=== PATIENT | female | born 1940 | race Caucasian/White ===

== ENCOUNTER → 2016-08-25 | Outpatient (CLI) | payer MEDICARE, OTHER | LOC: GMA 18:06 | PROVIDERS: ATTEND Nurse Practitioner Family | DX: L03.115 Cellulitis of right lower limb (principal) ==

== ENCOUNTER → 2016-08-26 | Outpatient (CLI) | payer MEDICARE, OTHER ==
--- NOTE | 2016-08-26 16:28 | US ---
EXAM DESCRIPTION: Venous,Lower Extremity RT CLINICAL HISTORY: EDEMA COMPARISON: None Available. TECHNIQUE: Right lower extremity venous duplex FINDINGS: There is no DVT identified. There is normal color flow observed with good flow augmentation. All deep veins compress normally. IMPRESSION: Negative for DVT Electronically signed by: Herve Wolf MD 08/26/2016 4:27 PM HOME CARE MUSIC THERAPIST
== END | disposition home or self-care (01) ==
LOC: US 09:34
PROVIDERS: ATTEND Nurse Practitioner Family
DX: R60.9 Edema, unspecified (principal)

== ENCOUNTER → 2016-09-03 | Outpatient (CLI) | payer MEDICARE, OTHER | END | disposition home or self-care (01) | LOC: GMAB 10:49 | PROVIDERS: ATTEND Family Medicine | DX: I80.01 Phlebitis and thrombophlebitis of superficial vessels of right lower extremity (principal); L03.115 Cellulitis of right lower limb ==

== ENCOUNTER → 2017-01-18 | Outpatient (CLI) | payer MEDICARE, OTHER | END | disposition home or self-care (01) | LOC: GMAB 14:03 | PROVIDERS: ATTEND Family Medicine | DX: L65.9 Nonscarring hair loss, unspecified (principal) ==

== ENCOUNTER → 2017-03-18 | Outpatient (CLI) | payer MEDICARE, OTHER | END | disposition home or self-care (01) | LOC: LAB.O 11:25 | PROVIDERS: ATTEND Internal Medicine | DX: E03.9 Hypothyroidism, unspecified (principal) ==

== ENCOUNTER → 2017-06-14 | Outpatient (CLI) | payer MEDICARE, OTHER | END | disposition home or self-care (01) | LOC: GMAB 10:18 | PROVIDERS: ATTEND Family Medicine | DX: E03.9 Hypothyroidism, unspecified (principal) ==

== ENCOUNTER 2017-08-11 18:03 | Inpatient (IN) | payer MEDICARE, OTHER ==
[2017-08-11] MEDS ORDERED: SODIUM CHLORIDE 0.9% 1000ML 1,000 ML IVS ONE ×2 (18:39→22:45)
--- NOTE | 2017-08-11 18:44 | ED.PDOC ---
History of Present Illness - General Chief Complaint: General Stated Complaint: cough,not eating,sick Time Seen by Provider: 08/11/17 18:36 Source: patient Exam Limitations: no limitations Additional Information: PT C/O WEAKNESS. HAS BEEN FEELING BAD FOR 3 DAYS BUT TODAY SHE BECAME SO WEAK SHE COULD NOT GET UP OUT OF BED. FAMILY CALLED EMS. - History of Present Illness Timing/Duration: other - 3 DAYS Severity: moderate Improving Factors: nothing Worsening Factors: nothing Associated Symptoms: other - HAS BEEN SWEATING AT HOME Allergies/Adverse Reactions: Allergies NO KNOWN ALLERGY Allergy (Verified 08/04/12 09:12) Home Medications: Ambulatory Orders Atorvastatin Calcium [Lipitor] 40 mg PO DAILY 07/29/12 Folic Acid [(None)] 1 mg PO DAILY 07/29/12 Glipizide 10 mg PO BID 07/29/12 Levothyroxine Sodium [Synthroid] 0.075 mg PO DAILY 07/29/12 Sulfasalazine [Sulfazine] 500 mg PO BID 07/29/12 predniSONE [(None)] 5 mg PO DAILY 07/29/12 Canagliflozin [Invokana] 300 mg PO DAILY 08/11/17 Clopidogrel Bisulfate [Plavix] 75 mg PO QD 08/11/17 Dabigatran Etexilate [Pradaxa] 75 mg PO BID 08/11/17 Methotrexate Sodium [Methotrexate] 10 mg PO WKLY 08/11/17 Metoprolol Succinate [Metoprolol Succinate ER] 100 mg PO DAILY 08/11/17 Pantoprazole Sodium 40 mg PO DAILY 08/11/17 Review of Systems - Review of Systems Constitutional: States: chills, diaphoresis. Denies: fever EENTM: States: no symptoms reported Respiratory: States: cough, short of breath, other - STAFF RESPIRATORY THERAPIST Cardiology: States: no symptoms reported Gastrointestinal/Abdominal: Denies: abdominal pain, nausea, vomiting Genitourinary: States: no symptoms reported Musculoskeletal: States: no symptoms reported Skin: States: no symptoms reported Neurological: States: no symptoms reported Endocrine: States: no symptoms reported Hematologic/Lymphatic: States: no symptoms reported Past Medical History (General) - Patient Medical History Hx Stroke: No Hx Cardiac Disorders: Yes - CAD, AFIB Hx Congestive Heart Failure: No Hx Hypertension: Yes Hx Diabetes: Yes Surgical History: Hysterectomy - Vaccination History Hx Influenza Vaccination: Yes Hx Pneumococcal Vaccination: Yes - Social History Hx Tobacco Use: No Family Medical History - Family History Mother Family History: Unknown Living Status: Unknown Physical Exam - Physical Exam General Appearance: Frail, No apparent distress Eye Exam: bilateral normal Ears, Nose, Throat: other - DRY MM Neck: full range of motion, supple, normal inspection Respiratory: lungs clear, normal breath sounds Cardiovascular/Chest: no murmur, tachycardia, other - OCC ECTOPY Gastrointestinal/Abdominal: normal bowel sounds, non tender, soft, no organomegaly Back Exam: normal inspection, no CVA tenderness Extremity: normal range of motion, non-tender Neurologic: no motor/sensory deficits, alert, normal mood/affect Skin Exam: normal color, warm/dry Lymphatic: no adenopathy Progress - Progress Progress: 08/11/17 20:37 FEELING SOME BETTER, STILL TACHYCARDIC AND HAD TEMP EARLIER. - EKG/XRAY/CT XRAY: chest - APRIL Departure - Departure Clinical Impression: Viral illness, Diabetes 1.5, managed as type 2, Dehydration fever Hypertension Qualifiers: Hypertension type: essential hypertension Qualified Code(s): I10 - Essential ( primary) hypertension Time of Disposition: 20:40 - D/W DANDY SINGLETON, WILL ADMIT Disposition: Admit Patient Condition: Fair Departure Forms: ED Discharge - Pt. Copy, Patient Portal Self Enrollment Referrals: Carlos Alberto Martin MD [Primary Care Provider] - 1-2 Weeks Home Medications: Ambulatory Orders Atorvastatin Calcium [Lipitor] 40 mg PO DAILY 07/29/12 Folic Acid [(None)] 1 mg PO DAILY 07/29/12 Glipizide 10 mg PO BID 07/29/12 Levothyroxine Sodium [Synthroid] 0.075 mg PO DAILY 07/29/12 Sulfasalazine [Sulfazine] 500 mg PO BID 07/29/12 predniSONE [(None)] 5 mg PO DAILY 07/29/12 Canagliflozin [Invokana] 300 mg PO DAILY 08/11/17 Clopidogrel Bisulfate [Plavix] 75 mg PO QD 08/11/17 Dabigatran Etexilate [Pradaxa] 75 mg PO BID 08/11/17 Methotrexate Sodium [Methotrexate] 10 mg PO WKLY 08/11/17 Metoprolol Succinate [Metoprolol Succinate ER] 100 mg PO DAILY 08/11/17 Pantoprazole Sodium 40 mg PO DAILY 08/11/17
--- NOTE | 2017-08-11 19:31 | RAD ---
PROCEDURE: XR CHEST 1 VIEW HISTORY: COUGH, FEVER COMPARISON: 10/18/2008 TECHNIQUE: Single projection of the chest was done. FINDINGS: There are underlying changes of COPD . There is a 4 mm nodule in the periphery of the right upper lung zone, indeterminate in nature and can be further assessed with a dedicated CT of the chest There are no discrete airspace infiltrates, pneumothoraces or pleural effusions. The pulmonary vascularity is normal. The cardiomediastinal silhouette is unremarkable for patient's age and sex. IMPRESSION: There is a 4 mm nodule in the periphery of the right upper lung zone, indeterminate in nature, new since 2008 and can be further assessed with a dedicated CT of the chest. Electronically signed by: Bala Cline MD 08/11/2017 7:30 PM [facility] Workstation: [id number]
[2017-08-11] MEDS ORDERED: ACETAMINOPHEN 500 MG TAB PO ONE (19:47)
--- NOTE | 2017-08-11 21:02 | HP ---
SUPERVISING PHYSICIAN: Nestor Fernandez MD CHIEF COMPLAINT: Fever and weakness. HISTORY OF PRESENT ILLNESS: This is a 76-year-old female patient who lives alone. Her brother went to see her today and she reported to him that she has felt sick and weak over the last 3 days. He reported she was so weak she was unable to turn her heater off and he felt it was over 100 degrees in her house. EMS was called and she was brought to the Emergency Room. In the Emergency Room, her temperature was 101.2 and her O2 saturations were 92% to 95%. Chest x -ray was done and per radiologic interpretation showed a 4 mm nodule in the periphery of the right upper lung, indeterminate in nature, new since 2008. Her labs show WBCs 5.7, hemoglobin 11.4, hematocrit 34.6, platelet count 229, neutrophils 74.1. Sodium was slightly low at 134, potassium 4.1, chloride 104, carbon dioxide 18, BUN 17, creatinine 0.9. Glucose 126, serum osmolality 269.4 , calcium 8. Urine showed glucose 500, urine ketones 15, small amount of urine blood, and 3 to 5 urine RBCs. I was called for admission to the hospital. The patient was admitted to the Medical/Surgical Floor and shortly after admission, she became very confused. She was unable to answers any questions. Her entry table operator were equal bilaterally and she could follow some simple commands, but she was unable to answer any questions. CT of the head was done and per radiologic interpretation showed no acute intracranial abnormalities. A flu swab was also done and she was positive for flu A. She received fluids in the Emergency Room as well as on the Floor. CPK was also ordered. The patient also had a heart rate between 110 and 150s. She was in atrial fibrillation with rapid ventricular response. She does have a history of atrial fibrillation on Pradaxa. She was given 5 mg of Lopressor IV. Rodriguez was also placed. Her review of systems and past medical history is limited due to the patient's mental status. PAST MEDICAL HISTORY: 1. Atrial fibrillation. 2. Chronic obstructive pulmonary disease. 3. Diabetes mellitus. 4. Hypothyroidism. PAST SURGICAL HISTORY: 1. Hysterectomy. OUTPATIENT MEDICATIONS: Per the EMR and awaiting verification. ALLERGIES: NO KNOWN DRUG ALLERGIES. SOCIAL HISTORY: The patient lives alone. Her smoking, ETOH or illicit drug use is unknown at this time. REVIEW OF SYSTEMS: Unable to obtain due to the patient's mental status. PHYSICAL EXAMINATION: VITAL SIGNS: Temperature on admission was 101.2. It is now 99.3. Heart rate was as low as 118 and has been as high as 154. Blood pressure 129/90. Respiratory rate 20. O2 92% on room air. GENERAL: This is a thin 76-year-old female patient who is in mild distress lying in her hospital bed. HEENT: Normocephalic, atraumatic. Pupils are equal and reactive. Oropharynx is clear. Oral mucous membranes are dry. NECK: Supple without mass. No discernible jugular venous distention. RESPIRATORY: Essentially clear to auscultation bilaterally. CARDIOVASCULAR: Tachycardic rate and regular rhythm. GASTROINTESTINAL: Abdomen is soft, nondistended. Bowel sounds are positive. EXTREMITIES: No cyanosis, clubbing or edema. SKIN: Her facial areas are flushed. There are no lesions or rashes. NEUROLOGIC: She is awake. She is confused. LABORATORY: Labs and films are as per history of present illness. CPK is pending. ASSESSMENT: 1. Altered mental status, may be secondary to febrile illness and environmental factors. 2. Influenza A. 3. Atrial fibrillation with rapid ventricular response, on Pradaxa and metoprolol. 4. Chronic obstructive pulmonary disease. 5. Diabetes mellitus, type 2. 6. Hypothyroidism. PLAN: We will admit the patient to the hospital. We will watch her neurologically overnight. She has been given 3 total liters of fluid. I will repeat her labs in the morning. I will order Tamiflu. I will not start any antibiotics at this time, but we will monitor her cultures closely. Otherwise, we will monitor the patient closely and follow as needed. Dr. Fernandez is the collaborating physician and available for consultation. #[id number] [facility]
[2017-08-11] MEDS ORDERED: LEVALBUTEROL NEBS 1.25 MG/3 ML VIAL INH PRN (22:45)
[2017-08-11] MEDS: METOPROLOL TARTRATE 50 MG TAB PO ONE ×2 (22:49→22:54)
[2017-08-11] MEDS ORDERED: METOPROLOL TARTRATE INJ 5 MG/5 ML VIAL IV ONE (22:52)
[2017-08-11] MEDS ORDERED: SODIUM CHLORIDE 0.9% 1000ML 1,000 ML ONE (22:57)
--- NOTE | 2017-08-11 23:13 | CT ---
PROCEDURE: Head HISTORY: ams Indication: Same as above Comparison: None Technique: CT of the head was done without intravenous contrast was done in the orthogonal planes. This exam was performed according to our departmental dose-optimization program, which includes automated exposure control, adjustment of the mA and/or KV according to the patient's size and/or use of iterative reconstruction technique. FINDINGS: There is no intracranial hemorrhage, midline shift mass effect or acute focal infarct. There is mild prominence of the sylvian fissures and the cortical sulci reflecting age related volume loss. There is mild periventricular and deep white matter low attenuation, most likely related to small vessel white matter ischemic disease. If clinical concern exists regarding an acute ischemic/vascular pathology being responsible for patient's symptomatology, an MRI of the brain is more sensitive than the current study, in ruling out such a possibility. There is good varghese/white matter differentiation. The ventricular system is normal. The mastoid air cells are unremarkable . The paranasal sinuses show changes of chronic sinusitis . There is no visualization of acute fractures involving the calvarium or the skull base. IMPRESSION: There is no acute intracranial abnormality. Age related and chronic involutional changes are seen. Electronically signed by: Bala Cline MD 08/11/2017 11:12 PM [facility] Workstation: [id number]
[2017-08-11] MEDS: PANTOPRAZOLE SODIUM IV 40 MG VIAL IV SCH (23:48)
[2017-08-11] MEDS: IV SET AND CAP CHANGE INJ INJ SCH (23:49)
[2017-08-12] MEDS: LEVALBUTEROL NEBS 1.25 MG/3 ML VIAL INH SCH ×3 (00:04→16:18)
[2017-08-12] MEDS: DEX 5% W/NACL 0.45% 1000ML 1,000 ML IVS PRN ×2 (00:39→10:21)
[2017-08-12] MEDS: OSELTAMIVIR 75 MG CAP PO SCH ×2 (08:34→20:21)
[2017-08-12] MEDS: SODIUM CHLORIDE 0.9% (FLUSH) 10 ML SYG IV SCH ×2 (08:35→20:21)
[2017-08-12] MEDS ORDERED: METOPROLOL SUCCINATE XL 100 MG TAB PO SCH (09:00)
[2017-08-12] MEDS: METOPROLOL SUCCINATE XL 50 MG TAB PO SCH (09:51)
[2017-08-12] MEDS: sulfaSALAzine TAB 500 MG TAB PO SCH ×2 (09:58→20:21)
[2017-08-12] MEDS: glipiZIDE 5 MG TAB PO SCH ×2 (09:58→16:45)
[2017-08-12] MEDS: LEVOTHYROXINE SODIUM 0.075 MG TAB PO SCH (09:58)
[2017-08-12] MEDS: ATORVASTATIN 20 MG TAB PO SCH (09:58)
[2017-08-12] MEDS: CLOPIDOGREL 75 MG TAB PO SCH (09:58)
[2017-08-12] MEDS: DABIGATRAN ETEXILATE 75 MG CAP PO SCH ×2 (09:58→20:21)
[2017-08-12] MEDS: predniSONE 5 MG TAB PO SCH (09:58)
[2017-08-12] MEDS: NON-FORMULARY MEDICATION 1 EA MIS (Canagliflozin [Invokana] 300 MG) PO SCH (10:40)
--- NOTE | 2017-08-12 20:13 | PN ---
DATE: 08/12/17 SUPERVISING PHYSICIAN: Nestor Fernandez M.D. SUBJECTIVE: The patient is sitting up in bed much more alert and oriented today , actually complains of being hungry. She denies any chest pain, shortness of breath, nausea, vomiting or diarrhea. OBJECTIVE: Temperature 98, pulse rate 96, blood pressure 119/71, respirations 14, O2 sat is 99% on room air. RESPIRATORY: Essentially clear to auscultation bilaterally. CARDIAC: Regular rate, irregular rhythm. GASTROINTESTINAL: Abdomen is soft, nondistended, non-tender. Bowel sounds are positive. EXTREMITIES: No cyanosis, clubbing or edema. NEUROLOGIC: She is awake, alert and oriented times three. LABORATORY: Sodium 138, potassium 4.1, chloride 110, carbon dioxide 20. BUN 12 with creatinine 0.81. Serum osmolality is 274.4, calcium 7.6 with creatinine kinase 181. WBCs are 4.3 with hemoglobin 11.2 and hematocrit 34. Preliminary blood cultures are negative to date. Urine culture is pending. Flu swab was positive for Influenza A. All other labs and films have been reviewed via the EMR. ASSESSMENT: 1. Upper respiratory illness with a positive Influenza A swab. 2. Altered mental status may be secondary to febrile illness, dehydration and environmental factors. 3. Atrial fibrillation with rapid ventricular response on Pradaxa and Metoprolol. Has normalized since resuming her medications. 4. Chronic obstructive pulmonary disease. 5. Diabetes mellitus type 2. 6. Hypothyroidism. PLAN: We will continue present supportive care. I have advanced her diet to a full liquid. I have also stopped her IV fluids and restarted all of her home medications. Her mental status has improved greatly with fluids. I will consult Physical Therapy in the morning to make sure she is safe for discharge. It may be beneficial for her to have home health on discharge. I have ordered labs for in the morning. We will continue to monitor the patient closely and follow as needed. Dr. Fernandez is the collaborating physician available for consultation. #[id number] [facility]
[2017-08-12] MEDS ORDERED: HYDROcodone 5MG/APAP 325MG 1 EA TAB ONE (20:14)
[2017-08-12] MEDS: HYDROcodone 5MG/APAP 325MG 1 EA TAB PO PRN (20:20)
[2017-08-12] MEDS: PANTOPRAZOLE SODIUM IV 40 MG VIAL IV SCH (23:10)
[2017-08-13] MEDS: LEVALBUTEROL NEBS 1.25 MG/3 ML VIAL INH SCH ×4 (00:20→23:40)
[2017-08-13] MEDS: glipiZIDE 5 MG TAB PO SCH ×2 (06:47→16:08)
[2017-08-13] MEDS: NON-FORMULARY MEDICATION 1 EA MIS (Canagliflozin [Invokana] 300 MG) PO SCH (08:50)
[2017-08-13] MEDS: OSELTAMIVIR 75 MG CAP PO SCH ×2 (08:50→21:29)
[2017-08-13] MEDS: sulfaSALAzine TAB 500 MG TAB PO SCH ×2 (08:50→21:31)
[2017-08-13] MEDS: ATORVASTATIN 20 MG TAB PO SCH (08:51)
[2017-08-13] MEDS: DABIGATRAN ETEXILATE 75 MG CAP PO SCH ×2 (08:51→21:29)
[2017-08-13] MEDS: predniSONE 5 MG TAB PO SCH (08:51)
[2017-08-13] MEDS: LEVOTHYROXINE SODIUM 0.075 MG TAB PO SCH (08:51)
[2017-08-13] MEDS: METOPROLOL SUCCINATE XL 50 MG TAB PO SCH (08:51)
[2017-08-13] MEDS: SODIUM CHLORIDE 0.9% (FLUSH) 10 ML SYG IV SCH ×2 (08:52→21:30)
[2017-08-13] MEDS: CLOPIDOGREL 75 MG TAB PO SCH (08:54)
--- NOTE | 2017-08-13 09:12 | CT ---
EXAM DESCRIPTION: Chest w/o Contrast CLINICAL HISTORY: pulm nodule COMPARISON: Chest radiograph 08/11/2017 TECHNIQUE: Multiple axial images of the chest without contrast Multiplanar reconstructions were provided. This exam was performed according to our departmental dose-optimization program, which includes automated exposure control, adjustment of the mA and/or kV according to patient size and/or use of iterative reconstruction technique. FINDINGS: Lungs: Lungs are mildly hyperexpanded. 4 mm pulmonary nodule in the superior right lower lobe on series 4 image 57. 4 mm right lower lobe pulmonary nodule on image 67. Linear atelectasis or scarring in the anterior right middle lobe and in the inferior left lower lobe. No pleural effusion. Mediastinum: The heart is enlarged. No pericardial effusion. Severe atherosclerosis in the thoracic aorta and in the coronary arteries. The trachea and esophagus are unremarkable. Lymph nodes: There are no pathologically enlarged lymph nodes by CT size criteria. Chest wall and lower neck: Indeterminate 1.2 cm nodule in the upper outer left breast. Bones: The bones are demineralized. Advanced multilevel spondylitic changes throughout the thoracic spine. Upper abdomen: Atherosclerosis in the upper abdominal aorta and its major branches. IMPRESSION: 1. Pulmonary nodules measuring up to 4 mm. Follow-up CT chest in 12 months recommended to confirm stability per guidelines below. 2. Left breast nodule measuring 1.2 cm. Recommend correlation with mammography. 3. Severe coronary artery atherosclerosis. 4. Cardiomegaly. 2017 Fleischner Society Recommendations for Multiple Solid Lung Nodules Follow-Up base on size (average of long- and short-axis diameters). Use most suspicious nodule for followup. Nodule Size <6 mm High-Risk Patient: Optional CT at 12 months Electronically signed by: Trevor Abbott MD 08/13/2017 9:11 AM [facility]
--- NOTE | 2017-08-13 13:51 | PN ---
SUPERVISING PHYSICIAN: Nestor Fernandez MD DATE: 08/13/17 SUBJECTIVE: The patient is lying in bed. She complains of extreme weakness and having difficulty getting out of bed. We talked at length about getting home health on discharge with physical therapy. She agreed that would be beneficial. Otherwise, no complaints of chest pain, nausea, vomiting, shortness of breath. OBJECTIVE: VITAL SIGNS: Afebrile. Heart rate 95. Respiratory rate 19. Blood pressure 131/74. O2 saturation 95% on room air. LUNGS: Essentially clear to auscultation bilaterally. CARDIAC: Regular rate and rhythm. GASTROINTESTINAL: Abdomen is soft, nondistended, nontender. Bowel sounds are positive. NEUROLOGIC: Awake, alert and oriented times three. LABORATORY: WBC 4.3, hemoglobin 10.5, hematocrit 32.3. Sodium 140, potassium 3.7, chloride 112, carbon dioxide 22, anion gap 9.7, BUN 11, creatinine 0.93. Preliminary blood cultures show no growth after [address] this morning that was done as recommended on her chest x-ray shows: 1. Pulmonary nodules measuring up to 4 mm with followup chest in 12 months recommended to confirm stability per guidelines. 2. Left breast nodule measuring 1.2 cm. Recommend correlation with mammography. 3. Severe coronary artery atherosclerosis. 4. Cardiomegaly. All other labs and films have been reviewed via the EMR. ASSESSMENT: 1. Upper respiratory illness with a positive Influenza A swab. 2. Altered mental status on admission, secondary to febrile illness, dehydration and environmental factors, now improved. 3. Atrial fibrillation with rapid ventricular response on admission on Pradaxa and metoprolol, now normalized since taking her medications. 4. Chronic obstructive pulmonary disease. 5. Diabetes mellitus, type 2. 6. Hypothyroidism. 7. Pulmonary nodule, 4 mm, needing followup in 12 months. 8. Left breast nodule measuring 1.2 cm, recommend correlation with mammography. PLAN: We will continue present supportive care. She has agreed to home health. At this point, she is so weak that it would be unsafe to send her home. I do have physical therapy evaluating her this afternoon. We are going to initiate home health with physical therapy at home. She will need a followup on the pulmonary nodule as well as the breast nodule as indicated on her chest CT. I will hold on labs for tomorrow as they have mostly normalized and we will reevaluate tomorrow morning to make sure she is safe to be discharged. Anticipate discharge in the next [address] Fernandez is the collaborating physician and available for consultation. #[id number] [facility]
[2017-08-13] MEDS: HYDROcodone 5MG/APAP 325MG 1 EA TAB PO PRN (21:30)
[2017-08-13] MEDS: PANTOPRAZOLE SODIUM IV 40 MG VIAL IV SCH (22:48)
[2017-08-14] MEDS: glipiZIDE 5 MG TAB PO SCH ×2 (06:35→16:39)
[2017-08-14] MEDS: ATORVASTATIN 20 MG TAB PO SCH (08:25)
[2017-08-14] MEDS: METOPROLOL SUCCINATE XL 50 MG TAB PO SCH (08:26)
[2017-08-14] MEDS: NON-FORMULARY MEDICATION 1 EA MIS (Canagliflozin [Invokana] 300 MG) PO SCH (08:26)
[2017-08-14] MEDS: predniSONE 5 MG TAB PO SCH (08:26)
[2017-08-14] MEDS: CLOPIDOGREL 75 MG TAB PO SCH (08:26)
[2017-08-14] MEDS: OSELTAMIVIR 75 MG CAP PO SCH ×2 (08:26→20:45)
[2017-08-14] MEDS: DABIGATRAN ETEXILATE 75 MG CAP PO SCH ×2 (08:26→20:45)
[2017-08-14] MEDS: sulfaSALAzine TAB 500 MG TAB PO SCH ×2 (08:26→20:45)
[2017-08-14] MEDS: SODIUM CHLORIDE 0.9% (FLUSH) 10 ML SYG IV SCH ×2 (08:26→20:45)
[2017-08-14] MEDS: LEVOTHYROXINE SODIUM 0.075 MG TAB PO SCH (08:26)
[2017-08-14] MEDS: LEVALBUTEROL NEBS 1.25 MG/3 ML VIAL INH SCH ×3 (08:30→23:50)
--- NOTE | 2017-08-14 14:42 | PN ---
DATE: 08/14/17 SUPERVISING PHYSICIAN: Nestor Fernandez M.D. SUBJECTIVE: The patient is sitting up in the chair in her hospital room. She is very frustrated that she is sick and has lost some of her independence. She continues complaints of extreme weakness but feeling better. We discussed at length going home with physical therapy and home health, and she agreed that she did need it, although she is sm resistant to the idea of losing her independence. I have expressed to her that it will help her keep her independence. OBJECTIVE: VITAL SIGNS: She is afebrile, heart rate 72, blood pressure 116/74, respiratory rate 18, O2 sat is 94% on room air. GENERAL: This is a 76 year-old female patient who is much improved over the last 24 hours. She is speaking clearly. RESPIRATORY: Essentially clear to auscultation bilaterally. CARDIAC: Regular rate and rhythm. GASTROINTESTINAL: Abdomen is soft, nondistended, non- tender. Bowel sounds are positive. NEUROLOGIC: She is awake, alert and oriented times three. LABORATORY: There are no labs or films to report at this time. Her physical therapy shows that the patient has shown improvement overnight in terms of safety, gait and functional mobility. There is still some concerns for going home due to activity tolerance. Recommend that the patient stay an additional 24 hours to focus on getting up in the chair throughout the day and to be continued with home health physical therapy to increase safety and endurance in the home. ASSESSMENT: 1. Upper respiratory illness with a positive Influenza A swab. 2. Altered mental status on admission, secondary to febrile illness, dehydration and environmental factors, now improved. 3. Extreme weakness due to illness, improving with physical therapy. She will continue with physical therapy as an outpatient with [facility]. 4. Atrial fibrillation with rapid ventricular response on admission that has now improved. She is on Pradaxa and metoprolol. 5. Chronic obstructive pulmonary disease. 6. Diabetes mellitus, type 2. 7. Hypothyroidism. 8. Pulmonary nodule, 4 mm, needing followup in 12 months. 9. Left breast nodule measuring 1.2 cm, recommend correlation with mammography. PLAN: We will continue present supportive care. Her labs and radiology have stabilized. I will give her an extra day with physical therapy for strengthening and conditioning. Hopefully she will be able to be discharged home tomorrow with [facility] and their physical therapy. She will need close followup with Dr. Brown, her primary care physician. We will continue to monitor her closely and follow as needed. Dr. Fernandez is the collaborating physician available for consultation. #[id number] [facility]
[2017-08-14] MEDS: IV SET AND CAP CHANGE INJ INJ SCH (23:30)
[2017-08-14] MEDS: SODIUM CHLORIDE 0.9% (FLUSH) 10 ML SYG IV PRN (23:30)
[2017-08-14] MEDS: PANTOPRAZOLE SODIUM IV 40 MG VIAL IV SCH (23:40)
[2017-08-15] MEDS: glipiZIDE 5 MG TAB PO SCH ×2 (06:36→16:45)
[2017-08-15] MEDS: LEVALBUTEROL NEBS 1.25 MG/3 ML VIAL INH SCH ×3 (08:25→23:35)
[2017-08-15] MEDS: ATORVASTATIN 20 MG TAB PO SCH (09:32)
[2017-08-15] MEDS: predniSONE 5 MG TAB PO SCH (09:32)
[2017-08-15] MEDS: OSELTAMIVIR 75 MG CAP PO SCH ×2 (09:32→21:08)
[2017-08-15] MEDS: DABIGATRAN ETEXILATE 75 MG CAP PO SCH ×2 (09:32→21:08)
[2017-08-15] MEDS: METOPROLOL SUCCINATE XL 50 MG TAB PO SCH (09:32)
[2017-08-15] MEDS: CLOPIDOGREL 75 MG TAB PO SCH (09:32)
[2017-08-15] MEDS: sulfaSALAzine TAB 500 MG TAB PO SCH ×2 (09:32→21:08)
[2017-08-15] MEDS: LEVOTHYROXINE SODIUM 0.075 MG TAB PO SCH (09:33)
[2017-08-15] MEDS: SODIUM CHLORIDE 0.9% (FLUSH) 10 ML SYG IV SCH ×2 (09:33→21:08)
[2017-08-15] MEDS: NON-FORMULARY MEDICATION 1 EA MIS (Canagliflozin [Invokana] 300 MG) PO SCH (09:33)
--- NOTE | 2017-08-15 14:44 | PN ---
DATE: 08/15/17 SUPERVISING PHYSICIAN: Nestor Fernandez M.D. SUBJECTIVE: The patient is sitting up in the chair in her hospital room. Her brother is at the beside. She continues to be somewhat frustrated because of her weakness but she realizes that she needs assistance. We discussed physical therapy and home health services again. She realizes she needs help at this point for strengthening and conditioning. She denies any chest pain, shortness of breath, nausea, vomiting, diarrhea or constipation.. OBJECTIVE: VITAL SIGNS: She is afebrile, heart rate 78, blood pressure 136/76, respiratory rate 20, O2 sat is 99% on room air. RESPIRATORY: Essentially clear to auscultation bilaterally. CARDIAC: Regular rate and rhythm. GASTROINTESTINAL: Abdomen is soft, nondistended, non-tender. Bowel sounds are positive. EXTREMITIES: No cyanosis, clubbing, or edema. NEUROLOGIC: She is awake, alert and oriented times three. LABORATORY: There are no labs or films to report at this time. ASSESSMENT: 1. Acute respiratory illness with a positive Influenza A swab. 2. Altered mental status on admission, secondary to febrile illness, dehydration and environmental factors, now improved. 3. Extreme weakness due to illness, improving with physical therapy. She will continue with physical therapy as an outpatient with [facility]. 4. Atrial fibrillation with rapid ventricular response on admission that has now improved. She is on Pradaxa and metoprolol. 5. Chronic obstructive pulmonary disease. 6. Diabetes mellitus, type 2. 7. Hypothyroidism. 8. Pulmonary nodule, 4 mm, needing followup in 12 months. 9. Left breast nodule measuring 1.2 cm, recommend correlation with mammography. PLAN: We will continue present supportive care. I have ordered routine lab for in the morning. She will have physical therapy tomorrow for evaluation for safety when she goes home. Yesterday, she was too weak to safely be discharged. On discharge she will have [facility] home health and physical therapy. I also ordered bladder training and for her to ambulate four times daily with assistance and we will continue to monitor the patient closely and follow as needed. Dr. Fernandez is the collaborating physician available for consultation. #[id number] [facility]
[2017-08-15] MEDS: PANTOPRAZOLE SODIUM IV 40 MG VIAL IV SCH (22:30)
[2017-08-15] MEDS: SODIUM CHLORIDE 0.9% (FLUSH) 10 ML SYG IV PRN (22:30)
[2017-08-16] MEDS: glipiZIDE 5 MG TAB PO SCH (06:31)
[2017-08-16] MEDS: LEVALBUTEROL NEBS 1.25 MG/3 ML VIAL INH SCH (08:28)
[2017-08-16] MEDS: NON-FORMULARY MEDICATION 1 EA MIS (Canagliflozin [Invokana] 300 MG) PO SCH (08:56)
[2017-08-16] MEDS: LEVOTHYROXINE SODIUM 0.075 MG TAB PO SCH (08:57)
[2017-08-16] MEDS: OSELTAMIVIR 75 MG CAP PO SCH (08:57)
[2017-08-16] MEDS: METOPROLOL SUCCINATE XL 50 MG TAB PO SCH (08:57)
[2017-08-16] MEDS: DABIGATRAN ETEXILATE 75 MG CAP PO SCH (08:57)
[2017-08-16] MEDS: predniSONE 5 MG TAB PO SCH (08:57)
[2017-08-16] MEDS: CLOPIDOGREL 75 MG TAB PO SCH (08:57)
[2017-08-16] MEDS: ATORVASTATIN 20 MG TAB PO SCH (08:57)
[2017-08-16] MEDS: sulfaSALAzine TAB 500 MG TAB PO SCH (08:57)
[2017-08-16] MEDS: SODIUM CHLORIDE 0.9% (FLUSH) 10 ML SYG IV SCH (08:58)
[2017-08-16 10:54] VITALS: TEMP 97.2
[2017-08-16] MEDS ORDERED: PANTOPRAZOLE SODIUM TAB 40 MG PO SCH (11:30)
[2017-08-16 13:34] VITALS: O2SAT 98
--- NOTE | 2017-08-16 13:35 | DS ---
DISCHARGE DIAGNOSIS: 1. Acute respiratory illness with positive Influenza A testing. 2. Altered level of mental status on admission, showing some slight improvement, probably secondary to the febrile state with dehydration and generalized illness contributing. 3. Severe disability and weakness making it difficult for her to safely walk until able to be improved with physical therapy and rehabilitation. Followup with outpatient [facility] to continue at home. 4. Chronic atrial fibrillation with acute rapid ventricular response on admission, showing some improvement with rate control with metoprolol and on Pradaxa anticoagulant therapy. Followed up in cardiology clinic. 5. History of chronic obstructive pulmonary disease in a nonsmoker. 6. History of diabetes mellitus, type 2. 7. Hypothyroidism on supplementation. 8. History of several pulmonary nodules, approximately 4 mm in size with repeat followup CT scan of the lung in 12 months recommended. 9. Left breast nodule noted at 1.2 cm size with recommendation of correlation with mammography to follow under Dr. Martin's direction. 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 She has almost fallen a few times. She lives at home alone and was unable to care for herself. She was admitted to the she has no other for specific [facility] care as well as for continued rehabilitation and diagnostic intervention and therapeutic intervention because of significant influenza A symptoms to rule out other attendant symptoms. Initial CT scan was performed of the chest eventually because of pulmonary nodules noted. This was also able to diamond picker a 1.2 cm left breast nodule that will require further followup as well. The patient was started on Tamiflu for treatment purposes and was continued on [facility] care with physical therapy evaluation and management. Her condition only slowly improved. It was almost necessary for her to go a chcf facility, but she was able to improve fairly significantly on the final day, allowing her to return home with good followup necessary. LABORATORY: White count 4.3, hemoglobin down to 10.5, differential normal at about 49% neutrophils. INR 1.19. Chemistry shows potassium 3.9, BUN 17, creatinine 0.9. Liver enzymes stayed within normal limits. CK 181, albumin 3.5. Urinalysis did show some hematuria, ketonuria, glycosuria. MICROBIOLOGY: Blood and urine cultures showed no growth while influenza type A was positive on nasal swab. Initial chest x-ray revealed some 4 mm nodules which were documented on CT scan with followup suggested in a year. CT of the head because of the altered level of consciousness was performed and revealed on acute intracranial anomalies. CT of the chest did reveal the documented nodules of the lung as well as a 1.2 cm lesion in the lateral left breast. Followup of this with mammography is necessary. HOSPITAL COURSE: The patient's condition was slow, but slowly showed some improvement and on the final day of her hospital stay, physical therapy was able to clear her to return home where she will require ongoing rehabilitation with [facility] and close family intervention. PLAN: The patient very much wishes to return home to have continued outpatient management. She is to have further followup with Dr. Martin within the next week. He will schedule a mammogram to evaluate the left breast nodule subsequently. Recheck of the pulmonary nodules with a repeat CT of the lung in a year as requested by the radiologist. See home medications. Dr. Martin to adjust further medications as needed. Home health to assist with ongoing home care. No falling. Be able to contact family if needed to help her with walkie talkie or other cell phone capabilities to be carried on her person. Return if not improving. #[id number] [facility]
[2017-08-16 14:17] VITALS: BP 108/74
== END 2017-08-16 14:35 | disposition home health service (06) | DRG 194 ==
LOC: ER 18:03 → OBSVTOIN 21:01 → MS 21:01
PROVIDERS: ADMIT Nurse Practitioner Acute Care; ATTEND Emergency Medicine
DX: J09.X2 Influenza due to identified novel influenza A virus with other respiratory manifestations (principal); J44.0 Chronic obstructive pulmonary disease with (acute) lower respiratory infection; E87.1 Hypo-osmolality and hyponatremia; E86.0 Dehydration; I48.2 Chronic atrial fibrillation; E11.9 Type 2 diabetes mellitus without complications; E03.9 Hypothyroidism, unspecified; R41.82 Altered mental status, unspecified; R91.1 Solitary pulmonary nodule; I10 Essential (primary) hypertension; N63.20 Unspecified lump in the left breast, unspecified quadrant; I25.10 Atherosclerotic heart disease of native coronary artery without angina pectoris; R53.1 Weakness; Z79.02 Long term (current) use of antithrombotics/antiplatelets; Z79.84 Long term (current) use of oral hypoglycemic drugs; Z79.52 Long term (current) use of systemic steroids; Z79.899 Other long term (current) drug therapy

== ENCOUNTER 2017-09-24 12:00 | Inpatient (IN) | payer MEDICARE, OTHER ==
--- NOTE | 2017-09-24 13:02 | ED.PDOC ---
History of Present Illness - General Chief Complaint: Skin/Abrasion/Tear Stated Complaint: right foot pain, swelling, redness Time Seen by Provider: 09/24/17 12:16 Additional Information: 77 Y/O FEMALE, C/O WEAKNESS, CONSTANT X 4 DAYS, MODERATE, GENERALIZED. HAD CAT BITE (HER OWN CAT) L ANKLE 4 DAYS AGO, NOW ANKLE AND FOOT ARE SWOLLEN, TENDER, RED. FELT HOT AT HOME ACC TO FAMILY. PT HAS NOT BEEN EATING OR TAKING HER MEDS PROPERLY. SOME COUGH. DENIES SOB, CP, N/V/D, HAS HAD OCC ABD PAIN, - History of Present Illness Allergies/Adverse Reactions: Allergies NO KNOWN ALLERGY Allergy (Verified 09/24/17 12:19) Home Medications: Ambulatory Orders Atorvastatin Calcium [Lipitor] 40 mg PO DAILY 07/29/12 Folic Acid 1 mg PO DAILY 07/29/12 Glipizide 10 mg PO BID 07/29/12 Levothyroxine Sodium [Synthroid] 0.075 mg PO DAILY 07/29/12 Sulfasalazine [Sulfazine] 500 mg PO BID 07/29/12 predniSONE [PredniSONE] 5 mg PO DAILY 07/29/12 Canagliflozin [Invokana] 300 mg PO DAILY 08/11/17 Clopidogrel Bisulfate [Plavix] 75 mg PO QD 08/11/17 Dabigatran Etexilate [Pradaxa] 75 mg PO BID 08/11/17 Methotrexate Sodium [Methotrexate] 10 mg PO WKLY 08/11/17 Pantoprazole Sodium 40 mg PO DAILY 08/11/17 Metoprolol Succinate [Metoprolol Succinate ER] 100 mg PO DAILY 08/12/17 Ferrous Sulfate [Iron] 65 mg PO DAILY 09/24/17 Lisinopril 10 mg PO DAILY 09/24/17 Mirtazapine 7.5 mg PO BEDTIME 09/24/17 Tylenol w/Codeine 300-30 mg 1 tablet PO Q4H PRN 09/24/17 Review of Systems - Review of Systems Constitutional: States: fever, malaise, weakness. Denies: chills, diaphoresis EENTM: States: no symptoms reported Respiratory: States: cough. Denies: orthopnea, short of breath, stridor Cardiology: Denies: chest pain, palpitations, syncope Gastrointestinal/Abdominal: States: abdominal pain. Denies: constipation, diarrhea, nausea, vomiting Genitourinary: States: no symptoms reported Musculoskeletal: States: joint pain, joint swelling. Denies: back pain Skin: States: change in color Neurological: States: weakness. Denies: anxiety, depressed, headache, numbness , paresthesia, seizure Endocrine: States: no symptoms reported Hematologic/Lymphatic: States: no symptoms reported Past Medical History (General) - Patient Medical History Hx Seizures: No Hx Stroke: No Hx Asthma: No Hx of COPD: No Hx Cardiac Disorders: Yes - CAD, AFIB Hx Congestive Heart Failure: No Hx Pacemaker: No Hx Hypertension: Yes Hx Diabetes: Yes Hx MRSA: No Surgical History: appendectomy, tonsillectomy, Hysterectomy - Vaccination History Hx Influenza Vaccination: Yes Hx Pneumococcal Vaccination: Yes - Social History Hx Tobacco Use: No Hx Alcohol Use: No Hx Substance Use: No Hx Physical Abuse: No Hx Emotional Abuse: No Family Medical History - Family History Mother Family History: Unknown Living Status: Unknown Physical Exam - Physical Exam General Appearance: Alert, No apparent distress, Other - GENERALIZED WEAKNESS Eye Exam: bilateral normal Ears, Nose, Throat: normal ENT inspection, normal pharynx Neck: non-tender, full range of motion, supple Respiratory: chest non-tender, lungs clear, normal breath sounds, no respiratory distress Cardiovascular/Chest: normal peripheral pulses, no edema, tachycardia, irregularly irregular Gastrointestinal/Abdominal: normal bowel sounds, non tender, soft, no organomegaly, no pulsatile mass, tenderness - SL DIFFUSE TTP, NO GUARDING, NO REBOUND Back Exam: normal inspection, no CVA tenderness Extremity: normal range of motion, non-tender, other - L ANKLE AND FOOT RED, SWOLLEN, TENDERNESS TO PALPATION Neurologic: 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 and 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 II-XII nml as tested, no motor/sensory deficits, alert, normal mood/affect, oriented x 3 Skin Exam: other - L ANKLE AND FOOT RED, HOT Lymphatic: no adenopathy Progress - Progress Progress: 09/24/17 14:31 Laboratory Tests 09/24/17 09/24/17 09/24/17 13:16 13:16 13:16 WBC 18.5 H RBC 4.01 L Hgb 11.0 L Hct 34.4 L MCV 85.8 MCH 27.4 MCHC 32.1 L RDW 21.5 H Plt Count 280 MPV 8.3 Absolute Neuts (auto) 14.50 H Absolute Lymphs (auto) 1.80 Absolute Monos (auto) 2.10 H Absolute Eos (auto) 0.00 Absolute Basos (auto) 0.10 Neutrophils % 78.3 H Lymphocytes % 9.7 L Monocytes % 11.3 H Eosinophils % 0.0 L Basophils % 0.7 PT 16.6 H INR 1.470 PTT (SP) 31.7 D-Dimer, Quantitative 459 H* Sodium 133 L Potassium 4.2 Chloride 97 L Carbon Dioxide 23 Anion Gap 17.2 BUN 27 H Creatinine 1.41 H BUN/Creatinine Ratio 19.1 Random Glucose 89 Serum Osmolality 271.0 L Lactic Acid Calcium 9.3 Total Bilirubin 1.3 H AST 34 ALT 16 Alkaline Phosphatase 67 B-Natriuretic Peptide 499.0 H* Serum Total Protein 7.5 Albumin 3.5 Globulin 4.0 H Albumin/Globulin Ratio 0.9 L 09/24/17 13:20 WBC RBC Hgb Hct MCV MCH MCHC RDW Plt Count MPV Absolute Neuts (auto) Absolute Lymphs (auto) Absolute Monos (auto) Absolute Eos (auto) Absolute Basos (auto) Neutrophils % Lymphocytes % Monocytes % Eosinophils % Basophils % PT INR PTT (SP) D-Dimer, Quantitative Sodium Potassium Chloride Carbon Dioxide Anion Gap BUN Creatinine BUN/Creatinine Ratio Random Glucose Serum Osmolality Lactic Acid 3.2 H* Calcium Total Bilirubin AST ALT Alkaline Phosphatase B-Natriuretic Peptide Serum Total Protein Albumin Globulin Albumin/Globulin Ratio - EKG/XRAY/CT Comments: A FIB 120X', AQRS: 78, QTc 446, IRBBB, NON SPECIFIC ST T CHANGES Departure - Departure Clinical Impression: Sepsis, Cat bite, Atrial fibrillation with RVR, Diabetes mellitus Cellulitis Qualifiers: Site of cellulitis: extremity Site of cellulitis of extremity: lower extremity Laterality: left Qualified Code(s): L03.116 - Cellulitis of left lower limb Disposition: Admit Patient Departure Forms: ED Discharge - Pt. Copy, Patient Portal Self Enrollment Instructions: DI for Abrasion Referrals: Carlos Alberto Martin MD [Primary Care Provider] - 1-2 Weeks Home Medications: Ambulatory Orders Atorvastatin Calcium [Lipitor] 40 mg PO DAILY 07/29/12 Folic Acid 1 mg PO DAILY 07/29/12 Glipizide 10 mg PO BID 07/29/12 Levothyroxine Sodium [Synthroid] 0.075 mg PO DAILY 07/29/12 Sulfasalazine [Sulfazine] 500 mg PO BID 07/29/12 predniSONE [PredniSONE] 5 mg PO DAILY 07/29/12 Canagliflozin [Invokana] 300 mg PO DAILY 08/11/17 Clopidogrel Bisulfate [Plavix] 75 mg PO QD 08/11/17 Dabigatran Etexilate [Pradaxa] 75 mg PO BID 08/11/17 Methotrexate Sodium [Methotrexate] 10 mg PO WKLY 08/11/17 Pantoprazole Sodium 40 mg PO DAILY 08/11/17 Metoprolol Succinate [Metoprolol Succinate ER] 100 mg PO DAILY 08/12/17 Ferrous Sulfate [Iron] 65 mg PO DAILY 09/24/17 Lisinopril 10 mg PO DAILY 09/24/17 Mirtazapine 7.5 mg PO BEDTIME 09/24/17 Tylenol w/Codeine 300-30 mg 1 tablet PO Q4H PRN 09/24/17 Additional Instructions: D/W DR LARSON, WILL ADMIT, XR AND SONO PENDING Critical Care Note - Critical Care Note Total Time (mins): 36 - CRITICAL EVENT: WEAKNESS, L ANKLE/FOOT REDNESS, SWELLLING Comments: CRITICAL EVENT: WEAKNESS, L ANKLE/FOOT CRITICAL FINDINGS: A FIB WITH RVR, FEVER, LEUKOCYTOSIS, CRITICAL TREATMENT: IV FLUIDS, IV ANTIBIOTICS, IV DIGOXIN
[2017-09-24] MEDS ORDERED: SODIUM CHLORIDE 0.9% 1000ML 1,000 ML IVS ONE ×2 (13:13→14:55)
[2017-09-24] MEDS ORDERED: AMPICILLIN & SULBACTAM SODIUM 3 GM in SODIUM CHL 0.9% 100ML MINI-BAG 100 ML IVPB ONE (14:19)
[2017-09-24] MEDS ORDERED: VANCOMYCIN HCL INJ 1,000 MG in SODIUM CHLORIDE 0.9% 250ML 250 ML IVPB ONE (14:20)
[2017-09-24] MEDS ORDERED: DIGOXIN INJ 0.5 MG/2 ML AMP IV ONE (14:32)
[2017-09-24] MEDS ORDERED: LEVALBUTEROL NEBS 0.63 MG/3 ML VIAL INH PRN (14:33)
[2017-09-24] MEDS ORDERED: MAGNESIUM HYDROXIDE 30 ML UD PO PRN (14:33)
[2017-09-24] MEDS ORDERED: SODIUM CHL 0.9% 100ML MINI-BAG 100 ML IVPB ONE (14:41)
[2017-09-24] MEDS ORDERED: AMPICILLIN & SULBACTAM SODIUM 3 GM VIAL ONE (14:41)
[2017-09-24] MEDS ORDERED: VANCOMYCIN PER PHARMACY INJ SCH (15:00)
[2017-09-24] MEDS ORDERED: HYDROcodone 5MG/APAP 325MG 1 EA TAB PO ONE (15:08)
--- NOTE | 2017-09-24 15:40 | HP ---
HISTORY OF PRESENT ILLNESS: This 77 year-old white female was admitted to the hospital via the Emergency Room because of significant infection in the left foot after a cat bite and its associated sepsis syndrome. The patient lives by herself. She apparently was bitten by one of her domesticated cats on her left ankle several inches above the malleolus about 4 days ago. It was an unprovoked cat bite and the cat has bitten her before. The next 2 days there was some slight drainage from one of the puncture tooth mcgraw but that drainage completely dried up subsequently. She had swollen feet before the bite and they became even more swollen especially on the left foot after the cat bite 4 days ago. For the last 2 days she has had associated fever and chills. Decreased appetite. She has not eaten much for the last day and a half. The brother came by her home and found her ill, and was able to help assist her in getting to the Emergency Room. In the Emergency Room she was found to have a very low blood pressure of 92/54 with a pulse of 125. Her temperature was elevated at 100.6. Her pulse was very irregular and rapid up to 152 beats-per- minute. She was less than fully awake and had some altered level of consciousness. The patient received fluids. She received cultures which were obtained and was started on specific antibiotics to include Unasyn and vancomycin because of the possible contaminants of the cat bite. She did have an ultrasound of her left lower extremity because of an elevated D-dimer which did not show a DVT being present. Elevated lactic acid was present suggesting an early sepsis syndrome which treated with fluids, antibiotics and supportive care showed reduction towards normal limits after approximately 2 hours. The patient is admitted to the hospital for parenteral therapy because of the significance of the underlying infection. She was encouraged to address the presence of this cat who has repetitively bitten her in the past and to remove him from her home environment. PAST MEDICAL HISTORY: 1. Chronic atrial fibrillation on Pradaxa and metoprolol rate control currently with rapid atrial fibrillation. 2. History of hypertension yet with a very low blood pressure at this time. PAST SURGICAL HISTORY: 1. Hysterectomy. 2. Appendectomy in 1983. 3. Skin cancers removed. CURRENT MEDICATIONS: Please refer to list provided by the nurse of verified home medications. ALLERGIES: NONE. FAMILY HISTORY: Positive for stomach cancer, diabetes and coronary artery disease. 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 She has never smoked. 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 REVIEW OF SYSTEMS: Some weight loss in the past but she has apparently gained it back. Fever and chills noted with her current illness. HEENT: Hearing appears to be fairly normal and vision appears to be good. LUNGS: Some shortness of breath upon exertion and she feels very tired. No hemoptysis. CARDIOVASCULAR: She has had some rapid irregular pulses recently but has skipped some of her medicines for rate control. No chest pains otherwise evident. ABDOMEN: No nausea or vomiting, diarrhea or blood in the stools. Decreased appetite noted. GENITOURINARY: No dysuria. It is of note that she did have a significant viral illness with Influenza about 6 weeks ago requiring several days in the hospital and then she went home and was feeling better ever since until the cat bite. NEUROLOGIC: She feels weak all over. PHYSICAL EXAMINATION: VITAL SIGNS: Temperature was up to 100.6, blood pressures were down to 92/54, pulse was up to 152 and was still elevated even after 0.5 mg of Lanoxin given parenterally in the E. R. She admits to not taking her metoprolol succinate earlier today and has had nothing to eat for the last day and a half. Room air saturation is 98%. GENERAL: The patient is fairly awake and alert. She is feeling much improved after some fluid challenges have been received, and she is feeling much better though still with pain in her foot. She is having difficulty getting around because of the pain and the generalized weakness. HEENT: Within normal limits. NECK: Supple. No carotid bruits. CHEST: Lungs have fairly good breath sounds. CARDIOVASCULAR: Heart tones are grossly irregular, rapid, approximately 125 [id number] and marked irregularity of atrial fibrillation noted. ABDOMEN: Has some mild tenderness upon gentle palpation. No organomegaly or masses otherwise evident. EXTREMITIES: Left foot is much more swollen than the right. She does have at least 2 scabbed areas of cat incisor puncture wounds more prominent on the medial aspect of her left lower leg about 4 inches above her ankle. No drainage is evident. The foot is swollen and hot to the touch with slight erythema noted. NEUROLOGIC: She is generally weak but no focal neurological weaknesses. LABORATORY: White count is elevated at 18,500 with 78% neutrophils, hemoglobin 11 with a normocytic/normochromic presentation. INR of 1.47 and D-dimer is elevated at 459. Chemistry shows sodium low at 133 with glucose 89, potassium 4.2, CO2 of 23, BUN 27 which is almost double normal and creatinine is 1.41 also elevated. Lactic acid is 3.2 and on repeat about 3-1/2 hours later it was down to 0.9 within normal limits. Bilirubin 1.3. Liver enzymes otherwise normal. Beta natriuretic peptide elevated at 499, albumin 3.5. Urine is pending. Blood cultures are obtained as also is an MRSA surveillance nasal culture. RADIOLOGY: Chest x-ray is reported as unremarkable and ankle x-ray shows advanced arthritis. No other fractures or abnormalities. Lower extremity ultrasound and Doppler of the venous system shows no DVT present. ASSESSMENT: 1. Acute cat bite with infection and cellulitis left foot and ankle. 2. Acute sepsis syndrome with associated elevated lactic acidosis, rapid pulse, leukocytosis, shock state with low blood pressure, fever. 3. Altered level of consciousness showing some improvement as fluids are given and initiation of treatment is begun. 4. Chronic atrial fibrillation with an acute rapid ventricular response with the patient having skipped some of her rate control medicines today and possibly even yesterday. 5. Leukocytosis. 6. Hypotension with a history of hypertension in the past with a current shock state probably secondary to the sepsis. 7. Elevated D-dimer with no evidence of deep venous thrombosis. 8. Diabetes mellitus type 2. 9. Febrile state. 10. Hyponatremia with associated mild free water fluid overload. 11. Acute renal injury which is new and possibly related to her current sepsis syndrome. PLAN: The patient will be admitted to the hospital for parenteral treatment with fluid resuscitation as well as parenteral antibiotics, including Unasyn and vancomycin per protocol. MRSA for carrier state is obtained. Elevate the foot. Continue with SCDs and her Pradaxa for DVT prophylaxis. Encourage deep breathing. Await urinalysis. Check C reactive protein. Follow blood pressure closely and treat accordingly with the Ariel inhibitor being held until proper rate control can be had with beta blockade, and be reintroduced if needed. Physical Therapy to evaluate for rehab potential. Close followup suggested with Dr. Martin when clinically stable and improving. #[id number] [facility]
[2017-09-24] MEDS: LEVALBUTEROL NEBS 0.63 MG/3 ML VIAL INH SCH ×2 (15:45→20:00)
--- NOTE | 2017-09-24 15:52 | RAD ---
EXAM DESCRIPTION: Ankle,Left 3 Views CLINICAL HISTORY: Swelling, pain COMPARISON: None. TECHNIQUE: 3 views left FINDINGS: Pronounced osteopenia is observed. Calcific atherosclerotic changes are observed in the vessels about the ankle. Plantar and Achilles enthesophytes are observed. No fracture is detected. Slight soft tissue swelling is observed about the ankle. IMPRESSION: Osteopenia is observed. No fracturing is detected. Electronically signed by: Herve Wolf MD 09/24/2017 3:50 PM CDT
--- NOTE | 2017-09-24 15:53 | RAD ---
EXAM DESCRIPTION: Chest,1 View CLINICAL HISTORY: fever COMPARISON: 11 August 2017 TECHNIQUE: AP portable chest FINDINGS: The lungs are clear. There is no infiltrate or effusion. The heart is normal size. There is been a reduction in heart size since the previous exam. IMPRESSION: Normal portable chest Electronically signed by: Herve Wolf MD 09/24/2017 3:51 PM CDT
--- NOTE | 2017-09-24 15:55 | US ---
EXAM DESCRIPTION: Venous,Lower Extremity LT CLINICAL HISTORY: LLE SWELLLING, RED, TENDER COMPARISON: None Available. TECHNIQUE: Left lower extremity venous duplex FINDINGS: There is no DVT identified. There is normal color flow observed with good flow augmentation. All deep veins compress normally. IMPRESSION: Negative for DVT Electronically signed by: Herve Wolf MD 09/24/2017 3:53 PM CDT
--- NOTE | 2017-09-24 16:29 | PCM.CORE ---
Physician DVT/VTE - Prophylaxis Currently: Patient already on anticoagulation therapy
[2017-09-24] MEDS ORDERED: SODIUM CHLORIDE 0.9% 250ML 250 ML ONE ×2 (16:35→16:37)
[2017-09-24] MEDS: IV SET AND CAP CHANGE INJ INJ SCH (16:35)
[2017-09-24] MEDS ORDERED: VANCOMYCIN HCL INJ 1,000 MG VIAL IVPB ONE (16:36)
[2017-09-24] MEDS: glipiZIDE 5 MG TAB PO SCH (16:43)
[2017-09-24] MEDS: VANCOMYCIN HCL INJ 750 MG in SODIUM CHLORIDE 0.9% 250ML 250 ML IVPB SCH (16:44)
[2017-09-24] MEDS ORDERED: METOPROLOL TARTRATE 50 MG TAB PO ONE (17:17)
[2017-09-24] MEDS ORDERED: METOPROLOL TARTRATE 25 MG TAB ONE (17:23)
[2017-09-24] MEDS ORDERED: LEVOTHYROXINE SODIUM 0.075 MG TAB ONE (19:39)
[2017-09-24] MEDS ORDERED: AMPICILLIN & SULBACTAM SODIUM 1.5 GM VIAL ONE (19:39)
[2017-09-24] MEDS ORDERED: SODIUM CHL 0.9% 50ML MIN-BAG+ 50 ML IVPB ONE (19:39)
[2017-09-24] MEDS ORDERED: PANTOPRAZOLE SODIUM TAB 40 MG PO ONE (19:40)
[2017-09-24] MEDS: KCL 20 MEQ/NS 1,000 ML IVS PRN (19:49)
[2017-09-24] MEDS: AMPICILLIN & SULBACTAM SODIUM 1.5 GM in SODIUM CHL 0.9% 50ML MIN-BAG+ 50 ML IVPB SCH (19:54)
[2017-09-24] MEDS: DABIGATRAN ETEXILATE 75 MG CAP PO SCH (20:32)
[2017-09-24] MEDS: MIRTAZAPINE 15 MG TAB PO SCH (20:32)
[2017-09-24] MEDS: sulfaSALAzine TAB 500 MG TAB PO SCH (20:32)
[2017-09-25] MEDS ORDERED: SODIUM CHL 0.9% 50ML MIN-BAG+ 50 ML IVPB ONE ×4 (01:05→19:31)
[2017-09-25] MEDS ORDERED: AMPICILLIN & SULBACTAM SODIUM 1.5 GM VIAL ONE ×4 (01:05→19:30)
[2017-09-25] MEDS: AMPICILLIN & SULBACTAM SODIUM 1.5 GM in SODIUM CHL 0.9% 50ML MIN-BAG+ 50 ML IVPB SCH ×4 (01:38→19:50)
[2017-09-25] MEDS ORDERED: DEXTROSE 50% 25 GM/50 ML SYG IV ONE ×2 (05:48→05:50)
[2017-09-25] MEDS: glipiZIDE 5 MG TAB PO SCH (06:03)
[2017-09-25] MEDS: LEVOTHYROXINE SODIUM 0.075 MG TAB PO SCH (06:03)
[2017-09-25] MEDS: PANTOPRAZOLE SODIUM TAB 40 MG PO SCH (06:03)
[2017-09-25] MEDS ORDERED: GLUCAGON INJ 1 MG VIAL SUBCU PRN (06:18)
[2017-09-25] MEDS ORDERED: DEXTROSE 50% 25 GM/50 ML SYG IV PRN (06:18)
[2017-09-25] MEDS ORDERED: OMEPRAZOLE CAP 20 MG CAP PO SCH (06:30)
[2017-09-25] MEDS: INSULIN LISPRO 100 UNITS/ML PEN SUBCU SCH ×4 (07:00→21:09)
[2017-09-25] MEDS ORDERED: LISINOPRIL 5 MG TAB PO SCH (09:00)
[2017-09-25] MEDS: LEVALBUTEROL NEBS 0.63 MG/3 ML VIAL INH SCH (09:10)
[2017-09-25] MEDS: sulfaSALAzine TAB 500 MG TAB PO SCH ×2 (09:22→21:12)
[2017-09-25] MEDS: DABIGATRAN ETEXILATE 75 MG CAP PO SCH ×2 (09:22→21:12)
[2017-09-25] MEDS: CLOPIDOGREL 75 MG TAB PO SCH (09:22)
[2017-09-25] MEDS: predniSONE 5 MG TAB PO SCH (09:23)
[2017-09-25] MEDS: METOPROLOL SUCCINATE XL 50 MG TAB PO SCH (09:23)
[2017-09-25] MEDS: HYDROcodone 5MG/APAP 325MG 1 EA TAB PO PRN ×2 (09:24→21:13)
[2017-09-25] MEDS: NON-FORMULARY MEDICATION 1 EA MIS (Canagliflozin [Invokana] 300 MG) PO SCH (10:33)
[2017-09-25] MEDS: KCL 20 MEQ/NS 1,000 ML IVS PRN (13:23)
--- NOTE | 2017-09-25 16:40 | PN ---
DATE: 09/25/17 SUPERVISING PHYSICIAN: Nestor Fernandez M.D. SUBJECTIVE: The patient's left leg continues to be inflamed, swollen and painful, although she feels like it has improved from admission. She does remain afebrile. OBJECTIVE: VITAL SIGNS: Temperature 98.9, heart rate 90 with respirations 14, blood pressure 100/63, O2 saturation 93% on nasal cannula at rest. I's and O's show a positive balance of 1240 with 1640 in, 400 out. Weight 43.7 kg. CHEST: Lungs were clear to auscultation. HEART: Regular rate and rhythm. ABDOMEN: Soft, non-tender. Positive bowel sounds. EXTREMITIES: No clubbing or cyanosis , but left extremity shows a moderate amount of erythema up to 1+ with redness and warm to touch, but no obvious drainage. Pulses distally are strong. Capillary refill is brisk. NEUROLOGIC: She is alert and oriented time three. LABORATORY: White count 13,100 down from 18.5, hemoglobin 8.8, hematocrit 27.1 , platelet count 253,000. Differential shows to be without a left shift. Chemistries show normal electrolytes with BUN 21, creatinine 0.8. Blood sugar remains between 35 and 238. Liver functions show to be within normal limits. C reactive protein is elevated at 28.3 with BNP of 481. RADIOLOGY: No radiographic studies were completed. ASSESSMENT: 1. Acute bite injury by a feline with resulting infection and cellulitis left foot and ankle. 2. Acute sepsis syndrome secondary to #1 with lactic acidosis and leukocytosis , both showing improvement after fluids and treatment. 3. Altered level of consciousness improving with fluids and initiation of treatment. 4. Chronic atrial fibrillation with an acute rapid ventricular response showing a controlled response since admission with the patient having skipped previous rate control medications prior to admission. 5. Leukocytosis. 6. Hypotension with a history of hypertension in the past with a current shock state probably secondary to the sepsis. 7. Elevated D-dimer with no evidence of deep venous thrombosis. 8. Diabetes mellitus type 2. 9. Febrile state. 10. Hyponatremia with associated mild free water fluid overload, improved with treatment. PLAN: Will continue with antibiotic coverage with Unasyn and vancomycin with close monitoring response clinically. Will anticipate at least another 24 to 48 hours in need of parenteral antibiotics. The patient will continue to have her leg elevated. Will plan to repeat laboratory studies in the morning. Until then, continue to monitor and treat appropriately. #[id number] [facility]
[2017-09-25] MEDS: SODIUM CHLORIDE 0.9% (FLUSH) 10 ML SYG IV PRN (19:48)
[2017-09-25] MEDS: MIRTAZAPINE 15 MG TAB PO SCH (21:12)
[2017-09-25] MEDS: ATORVASTATIN 20 MG TAB PO SCH (21:13)
[2017-09-26] MEDS ORDERED: AMPICILLIN & SULBACTAM SODIUM 1.5 GM VIAL ONE ×4 (01:59→19:37)
[2017-09-26] MEDS ORDERED: SODIUM CHL 0.9% 50ML MIN-BAG+ 50 ML IVPB ONE ×4 (02:00→19:38)
[2017-09-26] MEDS: SODIUM CHLORIDE 0.9% (FLUSH) 10 ML SYG IV PRN ×2 (02:07→20:21)
[2017-09-26] MEDS: AMPICILLIN & SULBACTAM SODIUM 1.5 GM in SODIUM CHL 0.9% 50ML MIN-BAG+ 50 ML IVPB SCH ×4 (02:07→20:21)
[2017-09-26] MEDS: KCL 20 MEQ/NS 1,000 ML IVS PRN (04:01)
[2017-09-26] MEDS: PANTOPRAZOLE SODIUM TAB 40 MG PO SCH (06:10)
[2017-09-26] MEDS: LEVOTHYROXINE SODIUM 0.075 MG TAB PO SCH (06:10)
[2017-09-26] MEDS: INSULIN LISPRO 100 UNITS/ML PEN SUBCU SCH ×5 (07:30→21:26)
[2017-09-26] MEDS ORDERED: LISINOPRIL 10 MG TAB PO SCH (09:00)
[2017-09-26] MEDS ORDERED: PANTOPRAZOLE SODIUM TAB 40 MG PO SCH (09:00)
[2017-09-26] MEDS: NON-FORMULARY MEDICATION 1 EA MIS (Canagliflozin [Invokana] 300 MG) PO SCH (09:11)
[2017-09-26] MEDS: CLOPIDOGREL 75 MG TAB PO SCH (09:14)
[2017-09-26] MEDS: sulfaSALAzine TAB 500 MG TAB PO SCH ×2 (09:14→20:44)
[2017-09-26] MEDS: DABIGATRAN ETEXILATE 75 MG CAP PO SCH ×2 (09:14→20:44)
[2017-09-26] MEDS: predniSONE 5 MG TAB PO SCH (09:14)
[2017-09-26] MEDS: FERROUS SULFATE 325 MG TAB PO SCH (09:14)
[2017-09-26] MEDS: FOLIC ACID 1 MG TAB PO SCH (09:14)
[2017-09-26] MEDS: METOPROLOL SUCCINATE XL 50 MG TAB PO SCH (09:29)
[2017-09-26] MEDS: LISINOPRIL 5 MG TAB PO SCH (09:30)
--- NOTE | 2017-09-26 14:49 | PN ---
DATE: 09/26/17 SUPERVISING PHYSICIAN: Nestor Fernandez M.D. SUBJECTIVE: The patient has been up to the bedside chair and she has continued to have her leg elevated and showing some good response with decrease in the amount of swelling. She continues to have some pain. She does remain afebrile. She has had no complications for antibiotic administration at this point to include\ nausea, vomiting or diarrhea. OBJECTIVE: VITAL SIGNS: Temperature 97.5, pulse 62, blood pressure 119/79k respirations 18 with O2 saturation of 99% on room air. I's and O's show a positive balance of 18 with 3160 in, 2350 out. Weight 43.7 kg. CHEST: Lungs were clear to auscultation. HEART: Regular rate and rhythm. ABDOMEN: Soft, non-tender. Positive bowel sounds. EXTREMITIES: The left foot continues to show some erythema which appears to be slightly decreased from previous with some continued edema which is decreased compared to previous marking as noted on admission. Capillary refill is brisk with pulses strong bilaterally. NEUROLOGIC: She is alert and oriented time three. LABORATORY: White count normalized now to 8,600, hemoglobin 8.1, hematocrit 25.4, platelet count 240,000. Differential shows to be within normal limits. Chemistries show normal electrolytes with potassium 4.2, BUN 21, creatinine 0.9. Blood sugar are between 54 and 226. Calcium 8.3. MICROBIOLOGY: Her MRSA surveillance culture preliminary shows a gram positive cocci with full results pending. Her blood cultures remain negative at 24 hours. ASSESSMENT: 1. Acute bite injury by a feline with resulting infection and cellulitis left foot and ankle requiring initiation of parenteral antibiotics. 2. Acute sepsis syndrome secondary to #1 with lactic acidosis and leukocytosis initially on admission showing improvement with antibiotic initiation. . 3. Altered level of consciousness on admission secondary to #1 and #2 improving with treatment. . 4. Chronic atrial fibrillation initially with an acute ventricular response showing a controlled response now with patient having previously skipped several doses of beta isamar with continued controlled ventricular rate since admission of her home medications. 5. Leukocytosis. 6. Hypotension with a history of hypertension in the past with a sepsis state noted on admission showing improvement with initiation of therapy. 7. Elevated D-dimer with no evidence of deep venous thrombosis per radiology studies. 8. Diabetes mellitus type 2. 9. Febrile state secondary to #1, improved with treatment. 10. Hyponatremia with associated mild free water fluid overload, improved with treatment. 11. Noted anemia with a normocytic normochromic presentation, uncertain etiology, possibly secondary to chronic illness. PLAN: Will continue with antibiotic treatment to include both the Unasyn and vancomycin. She will continue to have her leg elevated to help with the swelling. Will continue to watch her hemoglobin and hematocrit closely and should she show a significant decrease in her blood count, consideration for transfusion of packed red blood cells. Will anticipate at least another 24 to 48 hours of progressive antibiotic therapy with reevaluation in the morning. Until continues to show clinical improvement and able to discharge home, will continue to monitor and treat appropriately. #[id number] [facility]
[2017-09-26] MEDS ORDERED: SODIUM CHLORIDE 0.9% 250ML 250 ML ONE (17:07)
[2017-09-26] MEDS ORDERED: VANCOMYCIN HCL INJ 1,000 MG VIAL IVPB ONE (17:08)
[2017-09-26] MEDS: VANCOMYCIN HCL INJ 750 MG in SODIUM CHLORIDE 0.9% 250ML 250 ML IVPB SCH (17:29)
[2017-09-26] MEDS: MIRTAZAPINE 15 MG TAB PO SCH (20:44)
[2017-09-26] MEDS: ATORVASTATIN 20 MG TAB PO SCH (20:44)
[2017-09-27] MEDS ORDERED: SODIUM CHL 0.9% 50ML MIN-BAG+ 50 ML IVPB ONE ×4 (01:22→19:06)
[2017-09-27] MEDS ORDERED: AMPICILLIN & SULBACTAM SODIUM 1.5 GM VIAL ONE ×4 (01:22→19:05)
[2017-09-27] MEDS: AMPICILLIN & SULBACTAM SODIUM 1.5 GM in SODIUM CHL 0.9% 50ML MIN-BAG+ 50 ML IVPB SCH ×4 (01:40→19:57)
[2017-09-27] MEDS: HYDROcodone 5MG/APAP 325MG 1 EA TAB PO PRN (05:19)
[2017-09-27] MEDS: LEVOTHYROXINE SODIUM 0.075 MG TAB PO SCH (06:02)
[2017-09-27] MEDS: PANTOPRAZOLE SODIUM TAB 40 MG PO SCH (06:02)
[2017-09-27] MEDS: INSULIN LISPRO 100 UNITS/ML PEN SUBCU SCH ×4 (07:16→21:08)
[2017-09-27] MEDS: NON-FORMULARY MEDICATION 1 EA MIS (Canagliflozin [Invokana] 300 MG) PO SCH (08:34)
[2017-09-27] MEDS: LISINOPRIL 5 MG TAB PO SCH (08:34)
[2017-09-27] MEDS: METOPROLOL SUCCINATE XL 50 MG TAB PO SCH (08:34)
[2017-09-27] MEDS: CLOPIDOGREL 75 MG TAB PO SCH (08:34)
[2017-09-27] MEDS: sulfaSALAzine TAB 500 MG TAB PO SCH ×2 (08:34→20:32)
[2017-09-27] MEDS: DABIGATRAN ETEXILATE 75 MG CAP PO SCH ×2 (08:34→20:32)
[2017-09-27] MEDS: FERROUS SULFATE 325 MG TAB PO SCH (08:34)
[2017-09-27] MEDS: predniSONE 5 MG TAB PO SCH (08:34)
[2017-09-27] MEDS: FOLIC ACID 1 MG TAB PO SCH (08:36)
--- NOTE | 2017-09-27 14:30 | PN ---
SUPERVISING PHYSICIAN: Yordan Winston MD DATE: 09/27/17 SUBJECTIVE: The patient is doing much better today. The swelling in her leg is resolving nicely. She was able to work with physical therapy and ambulate today. She has had no complications from antibiotic coverage for the cellulitis. She remains afebrile. OBJECTIVE: VITAL SIGNS: Temperature 97.8. Pulse 78. Blood pressure 130/75. Respirations 18. Saturation 97% on room air. I&Os show negative balance of 656 with 2069 in, 2725 out. Weight 42.9 kg. CHEST: Lungs clear to auscultation bilaterally. HEART: Regular rate and rhythm. ABDOMEN: Soft, nontender. Positive bowel sounds. EXTREMITIES: Left lower extremity shows just a trace edema. Very minimal evidence of erythema. Pulses distally are strong. Brisk capillary refill. NEUROLOGIC: Alert and oriented times three. LABORATORY: Hemoglobin 9.0 and hematocrit 27.6 today. Chemistries show normal electrolytes with potassium 4.2, BUN 22, creatinine 0.92. Blood sugars have been between 106 and 255. C-reactive protein 8.6 which is from admission of 28.3. Vancomycin trough on 09/26/17 was less than 3.5. MICROBIOLOGY: Blood cultures remain negative at 3 days. MRSA surveillance culture shows no growth at 72 hours. ASSESSMENT: 1. Acute traumatic injury secondary to a bite from a feline with resulting infection and cellulitis left foot and ankle, requiring initiation of parenteral antibiotics, showing good improvement with vancomycin and Unasyn. 2. Acute sepsis syndrome secondary to #1, improving with antibiotic therapy and fluids. 3. Altered level of consciousness on admission secondary to #1 and #2, improved with treatment. 4. Chronic atrial fibrillation initially with a rapid ventricular response, showing good response with reinitiation of beta isamar and continued to show controlled rate since admission. 5. Leukocytosis, resolved, secondary to #1 and initiation of antibiotic therapy. 6. Elevated D-dimer with no evidence of deep venous thrombosis on radiograph studies. 7. Hypothyroidism with history of hypertension in the past with septic state noted on admission, improved with initiation of therapy. 8. Diabetes mellitus, type 2, fairly well controlled. 9. Febrile state secondary to #1, improved with treatment. 10. Hyponatremia with associated mild free water fluid overload, improved with treatment. 11. Anemia with a normocytic/normochromic presentation, stable, likely from chronic illness. PLAN: We will continue with additional 24 hours of parenteral antibiotic. Anticipation of discharging tomorrow. She remains on Unasyn and vancomycin. She has been working with physical therapy and will need a walker at discharge in regard to her discharge planning. Again, we will anticipate discharging tomorrow to continue with outpatient therapy with Augmentin to transition of Unasyn for continued antibiotic coverage. She will need close clinical followup on discharge. Until then, we will continue to monitor the patient closely and treat appropriately. #[id number] [facility]
[2017-09-27] MEDS ORDERED: SODIUM CHLORIDE 0.9% 250ML 250 ML ONE (16:29)
[2017-09-27] MEDS ORDERED: VANCOMYCIN HCL INJ 1,000 MG VIAL IVPB ONE (16:29)
[2017-09-27] MEDS: IV SET AND CAP CHANGE INJ INJ SCH (16:37)
[2017-09-27] MEDS: VANCOMYCIN HCL INJ 750 MG in SODIUM CHLORIDE 0.9% 250ML 250 ML IVPB SCH (16:37)
[2017-09-27] MEDS: ATORVASTATIN 20 MG TAB PO SCH (20:32)
[2017-09-27] MEDS: MIRTAZAPINE 15 MG TAB PO SCH (20:32)
[2017-09-28] MEDS ORDERED: SODIUM CHL 0.9% 50ML MIN-BAG+ 50 ML IVPB ONE ×3 (01:30→13:24)
[2017-09-28] MEDS ORDERED: AMPICILLIN & SULBACTAM SODIUM 1.5 GM VIAL ONE ×3 (01:30→13:24)
[2017-09-28] MEDS: AMPICILLIN & SULBACTAM SODIUM 1.5 GM in SODIUM CHL 0.9% 50ML MIN-BAG+ 50 ML IVPB SCH ×3 (02:09→13:32)
[2017-09-28] MEDS: SODIUM CHLORIDE 0.9% (FLUSH) 10 ML SYG IV PRN ×2 (02:09→13:32)
[2017-09-28] MEDS: PANTOPRAZOLE SODIUM TAB 40 MG PO SCH (06:03)
[2017-09-28] MEDS: LEVOTHYROXINE SODIUM 0.075 MG TAB PO SCH (06:03)
[2017-09-28] MEDS: INSULIN LISPRO 100 UNITS/ML PEN SUBCU SCH ×2 (07:31→12:19)
[2017-09-28] MEDS: sulfaSALAzine TAB 500 MG TAB PO SCH (08:27)
[2017-09-28] MEDS: FERROUS SULFATE 325 MG TAB PO SCH (08:27)
[2017-09-28] MEDS: predniSONE 5 MG TAB PO SCH (08:27)
[2017-09-28] MEDS: METOPROLOL SUCCINATE XL 50 MG TAB PO SCH (08:27)
[2017-09-28] MEDS: LISINOPRIL 5 MG TAB PO SCH (08:27)
[2017-09-28] MEDS: NON-FORMULARY MEDICATION 1 EA MIS (Canagliflozin [Invokana] 300 MG) PO SCH (08:29)
[2017-09-28] MEDS: DABIGATRAN ETEXILATE 75 MG CAP PO SCH (08:36)
[2017-09-28] MEDS: CLOPIDOGREL 75 MG TAB PO SCH (08:36)
[2017-09-28] MEDS: FOLIC ACID 1 MG TAB PO SCH (08:36)
[2017-09-28] MEDS ORDERED: BIFIDOBACTERIUM INFANTIS 4 MG CAP PO SCH (09:00)
[2017-09-28] MEDS ORDERED: TETANUS,DIPHTHERIA,PERTUSSIS 1 EA SYG IM ONE (10:33)
[2017-09-28] MEDS ORDERED: SODIUM CHLORIDE 0.9% 250ML 250 ML ONE (13:56)
[2017-09-28] MEDS ORDERED: VANCOMYCIN HCL INJ 1,000 MG VIAL IVPB ONE (13:57)
[2017-09-28] MEDS: VANCOMYCIN HCL INJ 750 MG in SODIUM CHLORIDE 0.9% 250ML 250 ML IVPB SCH ×2 (14:03→15:27)
[2017-09-28 15:20] VITALS: BP 132/76; TEMP 98.3; O2SAT 96
--- NOTE | 2017-09-30 16:37 | DS ---
SUPERVISING PHYSICIAN: Yordan Winston M.D.p DISCHARGE DIAGNOSIS: 1. Left lower foot and ankle cellulitis secondary to traumatic injury due to a feline bite with resultant sepsis. 2. Acute sepsis secondary to #1, improving with antibiotics and fluids to include parenteral antibiotics to include vancomycin. 3. Altered level of consciousness on admission secondary to #1, improved and back to baseline mental status prior to discharge. 4. Chronic atrial fibrillation initially with a rapid ventricular response secondary to poor medical compliance with beta blockers, improved and controlled rate prior to discharge after reinitiation of beta blockers. 5. Leukocytosis, resolved, secondary to #1 after initiation of antibiotics. 6. Elevated D-dimer secondary to #1 with no evidence of deep venous thrombosis on radiographic studies showing to return close to baseline status before discharge. 7. Hypotension with a history of hypertension in a patient with sepsis secondary to #1 improved with therapy and IV fluids. 8. Diabetes mellitus, type 2, fairly well controlled. 9. Febrile state secondary to #1, improved. 10. Hyponatremia with associated mild free water fluid overload, improved with therapy. 11. Anemia with a normocytic/normochromic presentation showing to be stable prior to discharge likely from chronic illness. REASON FOR HOSPITALIZATION: Ms Hernandez is a 77 year-old female patient that was admitted to the hospital from the Emergency Room due to significant infection in the left foot after a cat bite and associated sepsis. The patient lives alone and apparently was bitten by one of her domesticated cats on her left ankle several inches above the malleolus 4 days previous to admission. The cat was unprovoked and the cat had bitten her before while playing. The next 2 days the patient noted some slight drainage from one of the puncture tooth mcgraw and that drainage completely dried up subsequently. She has had swollen feet before the bite and they became even more swollen especially on the left foot after the cat bite 4 days previously. For the last 2 days prior to admission she had associated fever and chills, and decreased appetite. On the date of admission her brother came by her home and found her ill, and assisted her to the Emergency Room. In the Emergency Room she was found to have a very low blood pressure of 92/54 with a pulse of 125. Her initial temperature was 100.6. Her pulse was very irregular and rapid up to 152 beats- per-minute. She was lethargic with altered level of consciousness. She was given IV fluids and started on antibiotics, including Unasyn and vancomycin. Cultures were completed. She had an ultrasound of her left lower extremity due to elevated D-dimer which showed no DVT present. She had an elevated lactic acid that suggested early sepsis syndrome. It was treated with antibiotics, fluids, and further supportive care with good response within 2 hours of treatment. The patient was then admitted to the hospital for ongoing parenteral therapy due to the significance of the underlying infection. The patient was unsure of when she had had a tetanus shot as well as she noted that her cat was an inside domesticated and she had not concerns for any exposure to rabies. The patient was admitted to the medical floor in stable condition. LABORATORY STUDIES: White count initially on admission was 18,500, at disease was down to 8,600 with hemoglobin on admission of 11, hematocrit 34.4, at discharge was down to 9.0 and 27.6, platelet count 248,000. Differential on admission did show a left shift that resolved prior to discharge. Coagulation studies showed PT 16.6, INR 1.47. The patient is on Pradaxa. PTT was normal at 31.7. D-dimer was elevated at 459. Chemistries on admission showed hyponatremia at 133, potassium 4.2, BUN 27, creatinine 1.41, elevated lactic acid at 3.2 with total bilirubin 1.3. BNP was 499. After initiation of antibiotics and treatment prior to discharge, lactic acid normalized with sodium 130, potassium 4.0, BUN was down to 21, creatinine 0.8. Lactic acid had normalized within 4 hours of admission to 0.49 after fluids and antibiotic initiation. She did have an initial C reactive protein at 28.3 and prior to discharge was down to 8.6. Blood sugars ranged from 96 to 288, calcium at discharge was 8.3. Urinalysis on admission showed small amount of blood. Microscopic revealed 5 to 10 WBCs, 1 to 3 RBCs, 1+ bacteria, 1 to 3 epithelials. She had a vancomycin trough at less than 3.5. MICROBIOLOGY: MRSA surveillance cultures were negative for MRSA. Blood cultures showed no growth after 5 days. No additional cultures were submitted. RADIOLOGY: Initially in the Emergency Room she had a chest x-ray per radiology interpretation showed normal portable chest. She also had an x-ray of the left ankle and per radiology interpretation showed osteopenia observed. No fracture detected. She also had lower extremities ultrasound of the left lower leg which showed negative for DVT per radiology interpretation. EKG in the Emergency Department showed that she was in atrial fibrillation with ventricular rate of 120 on 12-lead. HOSPITAL COURSE: Ms. Hernandez was admitted on 09/24/17 as noted for a cat bite and localized infection of the left lower extremity with associated sepsis. She was started on aggressive treatment in the Emergency Department including antibiotics with Unasyn and vancomycin which was continued up until discharge. She was given fluids and supportive care. The patient had shown significant lower extremity edema and the leg was elevated through her hospitalization, and showed significant decrease in size and no evidence of signs of infection at discharge. The patient was able to ambulate without any significant difficulty and was showing to be clinically stable with vital signs on date of discharge showing temperature 98.2, pulse 86, blood pressure 132/76, respirations 16, satting 96% on room air. It was felt that she was clinically stable enough to be discharged to continue with therapy in the outpatient setting. PLAN: Ms. Hernandez was discharged on 09/28/17 with instructions to followup with Dr. Martin on 10/06/17 at 10:00 AM. She was to resume her home medications as directed and take new prescriptions as indicated. She was encouraged to keep her left leg elevated when possible but to increase her activities as tolerated. She was provided a prescription for a walker to assist with ambulatory efforts. Diet at discharge was diabetic diet as tolerated. Activity is to increase as tolerated. New prescriptions provided at discharge included: 1. Augmentin 875 twice daily for 6 days for total 14 day treatment. 2. Align 4 mg, #30. 3. Vibramycin 100 mg every 12 hours for an additional 6 days. She was to decrease her Lisinopril to 5 mg daily until seen in the office. All other medications as mentioned were prescribe prior to were continued. Condition at discharge was stable and improved. #[id number] [facility]
== END 2017-09-28 16:30 | disposition home or self-care (01) | DRG 872 ==
LOC: ER 12:00 → MS 15:39
PROVIDERS: ADMIT Emergency Medicine; ATTEND Nurse Practitioner Family
DX: A41.9 Sepsis, unspecified organism (principal); L03.116 Cellulitis of left lower limb; E87.1 Hypo-osmolality and hyponatremia; N17.9 Acute kidney failure, unspecified; S91.052A Open bite, left ankle, initial encounter; I48.2 Chronic atrial fibrillation; I10 Essential (primary) hypertension; E11.9 Type 2 diabetes mellitus without complications; D64.9 Anemia, unspecified; M85.872 Other specified disorders of bone density and structure, left ankle and foot; Z79.01 Long term (current) use of anticoagulants; Z91.14 Patient's other noncompliance with medication regimen; W55.01XA Bitten by cat, initial encounter; Z85.828 Personal history of other malignant neoplasm of skin

== ENCOUNTER → 2017-10-20 | Outpatient (CLI) | payer OTHER ==
--- NOTE | 2017-10-22 09:28 | US ---
EXAM DESCRIPTION: Breast,Bilateral: Ultrasound CLINICAL HISTORY: 77 yearsFemaleABN MAMMO COMPARISON: Digital diagnostic 3-D tomosynthesis bilateral mammography same visit. TECHNIQUE: Transcutaneous scanning of the bilateral breast utilizing two-dimensional and Doppler modes. Scanning performed by the sidehand and Dr. Larkin. FINDINGS: Scanning 800 clock position right breast 6 cm from the nipple to the nipple. Oval-shaped mass mostly anechoic measuring 4.8 x 4.1 mm with parallel orientation and posterior acoustic shadowing. Smooth margins. Most likely a complicated cyst. No distinct solid mass or other cyst. No calcifications or parenchymal edema. No overlying skin changes. Normal parenchymal vascularity. Scanning left breast 100 clock position 6 cm from the nipple to the nipple. Hypoechoic mass measuring 5.1 x 5.7 mm with echogenic center and well-defined margins and verbal posterior acoustic features. Parallel orientation. Most likely a lymph node. No other distinct solid mass or cyst. No parenchymal edema or large calcifications. No overlying skin changes. Normal soft tissue vascularity. IMPRESSION: 1. Bi-Rads Category 3: Probably Benign Findings. 2. Please refer to diagnostic 3-D tomosynthesis bilateral mammography and report on this visit. The FINDINGS and the FOLLOW-UP plan were reviewed in person with the patient after the examination. Written communication explaining the IMPRESSION and FOLLOW-UP will be mailed to the patient and referring care provider. Electronically signed by: Dk Larkin MD 10/22/2017 9:27 AM CDT
--- NOTE | 2017-10-22 15:04 | MAM ---
EXAM DESCRIPTION: 3D Diagnostic, Bilateral: Digital Mammography CLINICAL HISTORY: 77 yearsFemaleBREAST NODULE . No complaints. No family history breast cancer. Postmenopausal. Taking HRT 5 or more years ago. Nodule seen on CT scan from outside imaging facility. COMPARISON: CT scan of the chest 08/13/2017.. 2-D digital screening bilateral study on 05/03/2013. Prior reports are not available. TECHNIQUE: Bilateral CC LM MLO projection full-field images, 3-D tomosynthesis digital mammographic technique. Also bilateral synthesized CC MLO LM full-field images. CAD not utilized. FINDINGS: The breast parenchymal density pattern is: Extremely dense breast tissue, which lowers the sensitivity of mammography. No skin thickening or nipple retraction diffuse bilateral nodular-type fibroglandular tissues. Bilateral solitary microcalcifications and bilateral vascular calcifications. Right axillary lymph node. Focal asymmetry at the 800 clock position of the right breast in the middle third, approximately 8 cm from the nipple. Same density as the surrounding fibroglandular tissues. More distinct than on the prior study. Masslike densities at the 1230- 100 clock position of the middle third of the left breast approximately 6 cm from the nipple. Possibly associated with microcalcifications. Same density as the surrounding fibroglandular tissues. More distinct than on the prior study. ULTRASOUND: Scanning 800 clock position right breast 6 cm from the nipple to the nipple. Oval-shaped mass mostly anechoic measuring 4.8 x 4.1 mm with parallel orientation and posterior acoustic shadowing. Smooth margins. Most likely a complicated cyst. No distinct solid mass or other cyst. No calcifications or parenchymal edema. No overlying skin changes. Normal parenchymal vascularity. Scanning left breast 100 clock position 6 cm from the nipple to the nipple. Hypoechoic mass measuring 5.1 x 5.7 mm with echogenic center and well-defined margins and verbal posterior acoustic features. Parallel orientation. Most likely a lymph node. No other distinct solid mass or cyst. No parenchymal edema or large calcifications. No overlying skin changes. Normal soft tissue vascularity. IMPRESSION: BI-RADS CATEGORY: 3 - PROBABLY BENIGN. Management: Short interval (6-month) follow-up right breast with targeted right breast ultrasound, March 2018.. The FINDINGS and the FOLLOW-UP plan were reviewed in person with the patient after the examination. Written communication explaining the IMPRESSION and FOLLOW-UP will be mailed to the patient and referring care provider. Electronically signed by: Dk Larkin MD 10/22/2017 3:03 PM CDT
== END ==
LOC: MAMMO 10:23
PROVIDERS: ATTEND Family Medicine
DX: N63.20 Unspecified lump in the left breast, unspecified quadrant (principal)

== ENCOUNTER 2017-11-01 09:48 | Emergency (ER) | payer OTHER ==
--- NOTE | 2017-11-01 10:52 | CT ---
EXAM DESCRIPTION: Cervical Spine CLINICAL HISTORY: fall on blood thinners COMPARISON: None Available. TECHNIQUE: Multiple axial images of the cervical spine without contrast. Multiplanar reformatted images. This exam was performed according to our departmental dose-optimization program, which includes automated exposure control, adjustment of the mA and/or kV according to patient size and/or use of iterative reconstruction technique. FINDINGS: Vertebral body stature is maintained. 4 mm anterolisthesis of C3 on C4, and 3 mm anterolisthesis of C4 on C5. There is no acute fracture or destructive osseous lesion. Advanced hypertrophic degenerative changes at C1-C2. Advanced multilevel spondylitic changes throughout the cervical spine with associated hypertrophic uncovertebral and facet spurring. The findings are most pronounced at C4-C5 and C5-C6 where there is at least mild spinal canal stenosis and moderate to high-grade bilateral neural foraminal narrowing. More mild stenoses at the remaining levels. Calcific plaque in the visualized arteries. The visualized lung apices are clear. IMPRESSION: 1. No CT evidence of an acute osseous abnormality in the cervical spine. 2. Advanced multilevel spondylitic changes. Electronically signed by: Trevor Abbott MD 11/01/2017 10:51 AM CDT
--- NOTE | 2017-11-01 10:55 | CT ---
EXAM DESCRIPTION: Head CLINICAL HISTORY: fall on blood thinners COMPARISON: 08/11/2017 TECHNIQUE: Multiple axial images of the head without contrast. Multiplanar reformatted images. This exam was performed according to our departmental dose-optimization program, which includes automated exposure control, adjustment of the mA and/or kV according to patient size and/or use of iterative reconstruction technique. FINDINGS: There is no CT evidence of intracranial hemorrhage, mass effect, or acute large territory infarction. 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 Moderate generalized volume loss and moderate patchy supratentorial white matter hypodensities. There are no abnormal extra-axial fluid collections. Severe atherosclerosis in the cavernous internal carotid arteries. There is no acute calvarial defect. Moderate mucosal thickening with frothy debris in the left maxillary sinus. Mild mucosal thickening in the ethmoid air cells. The mastoid air cells are clear. IMPRESSION: 1. No CT evidence of an acute intracranial abnormality. If there is concern for an acute or subacute infarct, consider follow-up MRI. 2. Advanced senescent changes and chronic left frontal infarct. Electronically signed by: Trevor Abbott MD 11/01/2017 10:54 AM CDT
--- NOTE | 2017-11-01 10:57 | RAD ---
EXAM DESCRIPTION: Hip,Left 2 Views CLINICAL HISTORY: 77 yearsFemale, fall on blood thinners COMPARISON: None. IMPRESSION: The bones are demineralized, which somewhat limits evaluation. There is no definite evidence for acute fracture, dislocation, or destructive osseous lesion in the left hip. Severe changes of osteoarthritis are demonstrated in the left hip. There are also severe sclerotic degenerative changes in the pubic symphysis. If there is continued high clinical concern for fracture or the patient is unable to bear weight, follow-up cross-sectional imaging is recommended. Electronically signed by: Trevor Abbott MD 11/01/2017 10:56 AM CDT
--- NOTE | 2017-11-01 10:59 | RAD ---
EXAM DESCRIPTION: Knee,Left Complete CLINICAL HISTORY: 77 yearsFemale, fall on blood thinners COMPARISON: None. IMPRESSION: 3 views of the left knee were obtained. The bones are severely demineralized, which limits evaluation. No definite evidence of acute fracture, dislocation, or destructive osseous lesion. Severe changes of osteoarthritis are demonstrated involving all 3 compartments of the left knee. There is a suprapatellar joint effusion present. If indicated, CT or MRI may further evaluate for occult fracture or internal derangement. Electronically signed by: Trevor Abbott MD 11/01/2017 10:58 AM CDT
--- NOTE | 2017-11-01 11:02 | RAD ---
EXAM DESCRIPTION: Pelvis CLINICAL HISTORY: 77 yearsFemale, fall on blood thinners COMPARISON: None. IMPRESSION: AP view of the pelvis. The bones are demineralized, which limits evaluation. There is no evidence of acute fracture, dislocation, or destructive osseous lesion. Severe changes of osteoporosis arthritis are demonstrated in both hips and in the pubic symphysis. If there is continued high clinical concern for occult fracture, CT may further evaluate. Electronically signed by: Trevor Abbott MD 11/01/2017 11:01 AM CDT
--- NOTE | 2017-11-01 11:48 | ED.PDOC ---
History of Present Illness - General Chief Complaint: Trauma Stated Complaint: Fall, Left leg pain Time Seen by Provider: 11/01/17 09:53 Source: patient, family Exam Limitations: no limitations - History of Present Illness Initial Comments: the patient is a 77-year-old female presenting after a fall more than 24 hours ago where she hit her head on the kidney liver box and has had a mild headache since as well as neck pain. She does have some chronic neck pain. 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 The patient is having increased left hip and left knee pain compared to baseline. She has been ambulatory since the fall. There is no obvious deformity that is new in these joints. No laceration. Minimal bruising. Passive range of motion is preserved though there is some pain. She does obviously have a mild effusion about the left knee. There is no other obvious deformity and no crepitus. She does appear to be neurovascularly at her baseline. Timing/Duration: 24 hours Severity: moderate Improving Factors: immobilization Worsening Factors: movement Associated Symptoms: denies symptoms Allergies/Adverse Reactions: Allergies NO KNOWN ALLERGY Allergy (Verified 11/01/17 10:53) Home Medications: Ambulatory Orders Atorvastatin Calcium [Lipitor] 40 mg PO DAILY 07/29/12 Folic Acid 1 mg PO DAILY 07/29/12 Glipizide 10 mg PO BID 07/29/12 Levothyroxine Sodium [Synthroid] 0.075 mg PO DAILY 07/29/12 Sulfasalazine [Sulfazine] 500 mg PO BID 07/29/12 predniSONE [PredniSONE] 5 mg PO DAILY 07/29/12 Canagliflozin [Invokana] 300 mg PO DAILY 08/11/17 Clopidogrel Bisulfate [Plavix] 75 mg PO QD 08/11/17 Dabigatran Etexilate [Pradaxa] 75 mg PO BID 08/11/17 Methotrexate Sodium [Methotrexate] 10 mg PO WKLY 08/11/17 Pantoprazole Sodium 40 mg PO DAILY 08/11/17 Metoprolol Succinate [Metoprolol Succinate ER] 100 mg PO DAILY 08/12/17 Ferrous Sulfate [Iron] 65 mg PO DAILY 09/24/17 Mirtazapine 7.5 mg PO BEDTIME 09/24/17 Tylenol w/Codeine 300-30 mg 1 tablet PO Q4H PRN 03/30/18 Amoxicillin & Pot Clavulanate [Augmentin Tab] 875 mg PO BID #12 tab 09/28/17 Bifidobacterium Infantis [Align] 4 mg PO DAILY #30 capsule 09/28/17 Doxycycline Hyclate [Vibramycin] 100 mg PO Q12H #12 cap 09/28/17 Lisinopril [Prinivil] 5 mg PO DAILY tab 09/28/17 levoFLOXacin [Levaquin] 500 mg PO DAILY #7 tab 11/01/17 Review of Systems - Review of Systems Constitutional: States: malaise EENTM: States: no symptoms reported Respiratory: States: no symptoms reported Cardiology: States: no symptoms reported Gastrointestinal/Abdominal: States: no symptoms reported Genitourinary: States: no symptoms reported Musculoskeletal: States: see HPI Skin: States: no symptoms reported Neurological: States: no symptoms reported Endocrine: States: no symptoms reported All other Systems: No Change from Baseline Past Medical History (General) - Patient Medical History Hx Seizures: No Hx Stroke: No Hx Asthma: No Hx of COPD: No Hx Cardiac Disorders: Yes Hx Congestive Heart Failure: No Hx Pacemaker: No Hx Hypertension: Yes Hx Thyroid Disease: Yes Hx Diabetes: Yes Hx Gastroesophageal Reflux: Yes Hx MRSA: No Surgical History: Hysterectomy, other - Vaccination History Hx Influenza Vaccination: Yes - 2017 Hx Pneumococcal Vaccination: Yes - Social History Hx Tobacco Use: No Hx Alcohol Use: No Hx Substance Use: No Hx Physical Abuse: No Hx Emotional Abuse: No Family Medical History - Family History Mother Family History: Unknown Living Status: Unknown Physical Exam - Physical Exam General Appearance: Alert, Comfortable, No apparent distress Eye Exam: bilateral normal Ears, Nose, Throat: hearing grossly normal, normal pharynx Neck: full range of motion Respiratory: lungs clear, normal breath sounds, no respiratory distress, no accessory muscle use Cardiovascular/Chest: normal peripheral pulses, regular rate, rhythm, no edema Peripheral Pulses: radial,right: 2+, radial,left: 2+, dorsalis pedis,right: 2+, dorsalis pedis,left: 2+ Gastrointestinal/Abdominal: non tender, soft Rectal Exam: deferred Back Exam: no CVA tenderness Extremity: no pedal edema, no calf tenderness, normal capillary refill, other - see history of present illness 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 The patient does not appear to have any fractures obvious on x-ray of the left hip or the left knee. CT scan of the head and cervical spine showed no evidence of any acute trauma. She does have a significant left maxillary sinusitis that is giving her a very low- grade fever. The patient will be placed on Levaquin 500 mg daily for the next 7 days for this. She does need follow-up with her primary care doctor in 2 or 3 days for reevaluation. She does need to ambulate carefully to prevent further falls. ER warnings were given. - Results/Orders Results/Orders: x-ray of the left hip and left knee shows chronic degenerative changes however no evidence of any dislocation or fracture. CT scan of the head and cervical spine show significant chronic degenerative changes of the cervical spine however there is no evidence of any acute fracture or obvious acute subluxation. There is no evidence of any intracranial hemorrhage. She does have chronic changes intracranially. She also has a significant left maxillary sinusitisand mild ethmoid sinusitis. Departure - Departure Clinical Impression: Maxillary sinusitis Qualifiers: Chronicity: acute Recurrence: not specified as recurrent Qualified Code(s): J01.00 - Acute maxillary sinusitis, unspecified Fall at home Qualifiers: Encounter type: initial encounter Qualified Code(s): W19.XXXA - Unspecified fall, initial encounter; Y92.099 - Unspecified place in other non-institutional residence as the place of occurrence of the external cause Disposition: Discharge to Home or Self Care Condition: Fair Departure Forms: ED Discharge - Pt. Copy, Patient Portal Self Enrollment Instructions: DI for Trauma, DI for Sinusitis Diet: regular diet Activity: increase activity as tolerated Referrals: Carlos Alberto Martin MD [Primary Care Provider] - 1-5 Days Prescriptions: levoFLOXacin [Levaquin] 500 mg PO DAILY #7 tab Home Medications: Ambulatory Orders Atorvastatin Calcium [Lipitor] 40 mg PO DAILY 07/29/12 Folic Acid 1 mg PO DAILY 07/29/12 Glipizide 10 mg PO BID 07/29/12 Levothyroxine Sodium [Synthroid] 0.075 mg PO DAILY 07/29/12 Sulfasalazine [Sulfazine] 500 mg PO BID 07/29/12 predniSONE [PredniSONE] 5 mg PO DAILY 07/29/12 Canagliflozin [Invokana] 300 mg PO DAILY 08/11/17 Clopidogrel Bisulfate [Plavix] 75 mg PO QD 08/11/17 Dabigatran Etexilate [Pradaxa] 75 mg PO BID 08/11/17 Methotrexate Sodium [Methotrexate] 10 mg PO WKLY 08/11/17 Pantoprazole Sodium 40 mg PO DAILY 08/11/17 Metoprolol Succinate [Metoprolol Succinate ER] 100 mg PO DAILY 08/12/17 Ferrous Sulfate [Iron] 65 mg PO DAILY 09/24/17 Mirtazapine 7.5 mg PO BEDTIME 09/24/17 Tylenol w/Codeine 300-30 mg 1 tablet PO Q4H PRN 09/24/17 Amoxicillin & Pot Clavulanate [Augmentin Tab] 875 mg PO BID #12 tab 09/28/17 Bifidobacterium Infantis [Align] 4 mg PO DAILY #30 capsule 09/28/17 Doxycycline Hyclate [Vibramycin] 100 mg PO Q12H #12 cap 09/28/17 Lisinopril [Prinivil] 5 mg PO DAILY tab 09/28/17 levoFLOXacin [Levaquin] 500 mg PO DAILY #7 tab 11/01/17 Additional Instructions: the patient is a 77-year-old female on immunosuppressants presenting one to 2 days after a fall secondary to pain. The patient does not appear to have any fractures obvious on x-ray of the left hip or the left knee. CT scan of the head and cervical spine showed no evidence of any acute trauma. She does have a significant left maxillary sinusitis that is giving her a very low- grade fever. The patient will be placed on Levaquin 500 mg daily for the next 7 days for this. She does need follow-up with her primary care doctor in 2 or 3 days for reevaluation. She does need to ambulate carefully to prevent further falls. ER warnings were given. the patient does need to hold her cholesterol medication while taking the antibiotic.
[2017-11-01 12:24] VITALS: TEMP 99.9
[2017-11-01 12:26] VITALS: BP 120/76; O2SAT 96
== END 2017-11-01 12:20 | disposition home or self-care (01) ==
LOC: ER 09:48
DX: J01.00 Acute maxillary sinusitis, unspecified (principal); M25.552 Pain in left hip; M25.562 Pain in left knee; I10 Essential (primary) hypertension; E03.9 Hypothyroidism, unspecified; E11.9 Type 2 diabetes mellitus without complications; K21.9 Gastro-esophageal reflux disease without esophagitis; Z79.02 Long term (current) use of antithrombotics/antiplatelets; Z79.84 Long term (current) use of oral hypoglycemic drugs; W19.XXXA Unspecified fall, initial encounter

== ENCOUNTER 2017-11-15 06:48 | Emergency (ER) | payer OTHER ==
[2017-11-15 07:03] VITALS: TEMP 98.9
--- NOTE | 2017-11-15 07:10 | ED.PDOC ---
History of Present Illness - General Additional Information: 77 YEAR OLD COMPLAINTS OF LEFT KNEE PAIN FOR 3- 4 WEEKS SHE TOOK A FALL AND WAS SEEN IN THE ER SHE RETURNS HER PAIN IS GETTING WORSE AND NOW SHE CANT GET AROUND <Santiago Palacios - Last Filed: 11/15/17 07:10> - History of Present Illness Pain - Lower Extremity: moderate: Left Knee Method of Injury: fell Improving Factors: immobilization Worsening Factors: movement <Dulce Hernandez - Last Filed: 11/15/17 08:31> - General Chief Complaint: Lower Extremity Injury Stated Complaint: Left knee pain Time Seen by Provider: 11/15/17 07:01 - History of Present Illness Allergies/Adverse Reactions: Allergies NO KNOWN ALLERGY Allergy (Verified 11/01/17 10:53) Home Medications: Ambulatory Orders Atorvastatin Calcium [Lipitor] 40 mg PO DAILY 07/29/12 Folic Acid 1 mg PO DAILY 07/29/12 Glipizide 10 mg PO BID 07/29/12 Levothyroxine Sodium [Synthroid] 0.075 mg PO DAILY 07/29/12 Sulfasalazine [Sulfazine] 500 mg PO BID 07/29/12 Canagliflozin [Invokana] 300 mg PO DAILY 08/11/17 Clopidogrel Bisulfate [Plavix] 75 mg PO QD 08/11/17 Dabigatran Etexilate [Pradaxa] 75 mg PO BID 08/11/17 Methotrexate Sodium [Methotrexate] 10 mg PO WKLY 08/11/17 Pantoprazole Sodium 40 mg PO DAILY 08/11/17 Metoprolol Succinate [Metoprolol Succinate ER] 100 mg PO DAILY 08/12/17 Bifidobacterium Infantis [Align] 4 mg PO DAILY #30 capsule 09/28/17 Lisinopril [Prinivil] 5 mg PO DAILY tab 09/28/17 levoFLOXacin [Levaquin] 500 mg PO DAILY #7 tab 11/01/17 Methylprednisolone [Medrol Dose Evan] 4 mg PO DAILY #1 pack 11/15/17 Tramadol-Acetaminophen [Ultracet] 1 - 2 tab PO Q6HR PRN #30 tab 11/15/17 Review of Systems - Review of Systems Constitutional: Denies: chills, fever EENTM: Denies: eye pain, ear pain Respiratory: Denies: cough, short of breath Musculoskeletal: States: joint pain, joint swelling Skin: Denies: change in color, dryness <Dulce Hernandez Jose - Last Filed: 11/15/17 08:31> Past Medical History (General) - Patient Medical History Hx Seizures: No Hx Stroke: No Hx Asthma: No Hx of COPD: No Hx Cardiac Disorders: Yes Hx Congestive Heart Failure: No Hx Pacemaker: No Hx Hypertension: Yes Hx Thyroid Disease: Yes Hx Diabetes: Yes Hx Gastroesophageal Reflux: Yes Hx MRSA: No - Vaccination History Hx Influenza Vaccination: Yes - 2017 Hx Pneumococcal Vaccination: Yes - Social History Hx Tobacco Use: No Hx Alcohol Use: No Hx Substance Use: No Hx Physical Abuse: No Hx Emotional Abuse: No <Santiago Palacios - Last Filed: 11/15/17 07:10> Family Medical History - Family History Mother Family History: Unknown Living Status: Unknown <Santiago Palacios - Last Filed: 11/15/17 07:10> Physical Exam - Physical Exam General Appearance: Alert, Comfortable, Well Developed, Well Groomed, Well Hydrated Thigh/Hip: normal inspection, non-tender Leg: normal inspection, non-tender Knee: no evidence of injury, joint effusion - MILD, limited ROM - DUE TO STIFFNESS AND PAIN, swelling - MILD, NO ERYTHEMA OR INCREASED WARMTH NOTED. Ankle: normal inspection, non-tender, no evidence of injury Foot: normal inspection, non-tender, no evidence of injury Neuro/Tendon: normal sensation, normal motor functions, normal tendon functions Mental Status: alert, oriented x 3 Skin: normal color, warm/dry <Dulce Hernandez Jose - Last Filed: 11/15/17 08:31> Progress - Progress Progress: 11/15/17 08:26 PT RESTING COMFORTABLY, XRAY FINDINGS DISCUSSED. WILL APPLY KNEE IMMOBILIZER AND REFER TO ORTHOPEDIST, DR. ORLANDO. - EKG/XRAY/CT XRAY: knee - KNEE EFFUSION WITH DEGENERATIVE CHANGES, PER RAD <Dulce Hernandez - Last Filed: 11/15/17 08:31> Procedures - Splinting Left Knee Pre-Made Type: knee immobilizer Pre-Proc Neuro Vasc Exam: normal Post-Proc Neuro Vasc Exam: normal, unchanged from pre-exam <Dulce Hernandez - Last Filed: 11/15/17 08:31> Departure <Santiago Palacios - Last Filed: 11/15/17 07:10> - Departure Time of Disposition: 08:28 <Dulce Hernandez - Last Filed: 11/15/17 08:31> - Departure Clinical Impression: Degenerative arthritis of left knee, Joint effusion of knee Disposition: Discharge to Home or Self Care Condition: Fair Departure Forms: ED Discharge - Pt. Copy, Patient Portal Self Enrollment Instructions: DI for Osteoarthritis, DI for Knee Effusion Referrals: Carlos Alberto Martin MD [Primary Care Provider] - 1-2 Weeks Esvin Orlando MD [Active Staff] - 1-2 Days Prescriptions: Tramadol-Acetaminophen [Ultracet] 1 - 2 tab PO Q6HR PRN #30 tab PRN Reason: Pain Methylprednisolone [Medrol Dose Evan] 4 mg PO DAILY #1 pack Home Medications: Ambulatory Orders Atorvastatin Calcium [Lipitor] 40 mg PO DAILY 07/29/12 Folic Acid 1 mg PO DAILY 07/29/12 Glipizide 10 mg PO BID 07/29/12 Levothyroxine Sodium [Synthroid] 0.075 mg PO DAILY 07/29/12 Sulfasalazine [Sulfazine] 500 mg PO BID 07/29/12 Canagliflozin [Invokana] 300 mg PO DAILY 08/11/17 Clopidogrel Bisulfate [Plavix] 75 mg PO QD 08/11/17 Dabigatran Etexilate [Pradaxa] 75 mg PO BID 08/11/17 Methotrexate Sodium [Methotrexate] 10 mg PO WKLY 08/11/17 Pantoprazole Sodium 40 mg PO DAILY 08/11/17 Metoprolol Succinate [Metoprolol Succinate ER] 100 mg PO DAILY 08/12/17 Bifidobacterium Infantis [Align] 4 mg PO DAILY #30 capsule 09/28/17 Lisinopril [Prinivil] 5 mg PO DAILY tab 09/28/17 levoFLOXacin [Levaquin] 500 mg PO DAILY #7 tab 11/01/17 Methylprednisolone [Medrol Dose Evan] 4 mg PO DAILY #1 pack 11/15/17 Tramadol-Acetaminophen [Ultracet] 1 - 2 tab PO Q6HR PRN #30 tab 11/15/17
--- NOTE | 2017-11-15 08:06 | RAD ---
EXAM DESCRIPTION: Knee,Left 2 or More Views CLINICAL HISTORY: 77 years Female, pain swelling COMPARISON: November 01, 2017 FINDINGS: Two views of the left knee show a moderate to large sized joint effusion, unchanged from the previous exam. No acute fracture or malalignment is identified. Small osteophytes are noted in all three knee joint compartments with chondrocalcinosis in the medial and lateral compartments. The joint spaces are well-maintained. Vascular calcifications are present. IMPRESSION: Mild to moderate tricompartmental degenerative changes with a left knee joint effusion. No acute fracture or malalignment. Chondrocalcinosis, also likely of degenerative origin. Electronically signed by: Celio Hines MD 11/15/2017 8:05 AM CDT
[2017-11-15] MEDS ORDERED: traMADol 37.5MG/APAP 325MG 1 EA TAB PO ONE (08:21)
[2017-11-15] MEDS ORDERED: predniSONE 20 MG TAB PO ONE (08:22)
[2017-11-15 08:53] VITALS: BP 106/62; O2SAT 96
== END 2017-11-15 08:48 | disposition home or self-care (01) ==
LOC: ER 06:48
DX: M17.12 Unilateral primary osteoarthritis, left knee (principal); M25.462 Effusion, left knee; I10 Essential (primary) hypertension; E07.9 Disorder of thyroid, unspecified; E11.9 Type 2 diabetes mellitus without complications; K21.9 Gastro-esophageal reflux disease without esophagitis; Z79.02 Long term (current) use of antithrombotics/antiplatelets; Z79.899 Other long term (current) drug therapy; Z79.84 Long term (current) use of oral hypoglycemic drugs

== ENCOUNTER 2017-11-23 10:49 | Emergency (ER) | payer OTHER ==
--- NOTE | 2017-11-23 10:58 | ED.PDOC ---
History of Present Illness - General Chief Complaint: Diabetic Complaint Stated Complaint: unresponsive/Fsbs unable to give reading Time Seen by Provider: 11/23/17 10:57 Source: patient Exam Limitations: no limitations - History of Present Illness Initial Comments: Chiara Hernandez 77 y/o female brought by Ems after she was noted by her brother who comes visit her every morning was not fully waking up this am.EMS took her blood sugar finger stick and was noted reading low she was then given D50W after getting iv line and was more alert repeat FSBS taken-76 mg /dl.On her arrival here talking knows her whereabout,denies chest,chills,fever nausea/ vomiting.Also noted by ems was no blood sugar reading noted on her log book.Her speech was fluent no neurologic defits-dysarthria,weakness,facial numbness. Timing/Duration: 1-3 hours Severity: moderate Improving Factors: other - given [id number] hpi Worsening Factors: other - see hpi Associated Symptoms: denies symptoms Allergies/Adverse Reactions: Allergies NO KNOWN ALLERGY Allergy (Verified 11/23/17 11:04) Home Medications: Ambulatory Orders Atorvastatin Calcium [Lipitor] 40 mg PO DAILY 07/29/12 Glipizide 10 mg PO BID 07/29/12 Levothyroxine Sodium [Synthroid] 0.075 mg PO DAILY 07/29/12 Sulfasalazine [Sulfazine] 500 mg PO BID 07/29/12 Canagliflozin [Invokana] 300 mg PO DAILY 08/11/17 Clopidogrel Bisulfate [Plavix] 75 mg PO QD 08/11/17 Dabigatran Etexilate [Pradaxa] 75 mg PO BID 08/11/17 Methotrexate Sodium [Methotrexate] 10 mg PO WKLY 08/11/17 Pantoprazole Sodium 40 mg PO DAILY 08/11/17 Metoprolol Succinate [Metoprolol Succinate ER] 100 mg PO DAILY 08/12/17 Methylprednisolone [Medrol Dose Evan] 4 mg PO DAILY #1 pack 11/15/17 Tramadol-Acetaminophen [Ultracet] 1 - 2 tab PO Q6HR PRN #30 tab 11/15/17 Lisinopril [Prinivil] 10 mg PO DAILY 11/23/17 Review of Systems - Review of Systems Constitutional: States: no symptoms reported EENTM: States: no symptoms reported Respiratory: States: no symptoms reported Cardiology: States: no symptoms reported Gastrointestinal/Abdominal: States: no symptoms reported Endocrine: States: other - hypoglycemia All other Systems: Reviewed and Negative, No Change from Baseline Past Medical History (General) - Patient Medical History Hx Seizures: No Hx Stroke: No Hx Asthma: No Hx of COPD: No Hx Cardiac Disorders: Yes Hx Congestive Heart Failure: No Hx Pacemaker: No Hx Hypertension: Yes Hx Thyroid Disease: Yes Hx Diabetes: Yes Hx Gastroesophageal Reflux: Yes Hx MRSA: No Surgical History: appendectomy, other - CTS,cardiac stent;hysterectomy,cataract bilateral - Vaccination History Hx Influenza Vaccination: Yes - 2017 Hx Pneumococcal Vaccination: Yes - Social History Hx Tobacco Use: No Hx Alcohol Use: No Hx Substance Use: No Hx Physical Abuse: No Hx Emotional Abuse: No Family Medical History - Family History Mother Family History: Unknown Living Status: Unknown Hx Family Hypertension: Yes - parents Hx Family Diabetes: Yes Hx Family Cancer: Yes - mom-stomach Physical Exam - Physical Exam General Appearance: Alert, Comfortable, No apparent distress Eye Exam: bilateral normal Ears, Nose, Throat: hearing grossly normal, normal ENT inspection, normal pharynx Neck: non-tender, supple Respiratory: chest non-tender, lungs clear, normal breath sounds Cardiovascular/Chest: normal peripheral pulses, regular rate, rhythm, no murmur Peripheral Pulses: radial,right: 2+, radial,left: 2+ Gastrointestinal/Abdominal: normal bowel sounds, non tender, soft Back Exam: normal inspection, no CVA tenderness, no vertebral tenderness Extremity: non-tender, normal inspection, no pedal edema, no calf tenderness Neurologic: no motor/sensory deficits, alert, oriented x 3 Skin Exam: normal color, warm/dry Lymphatic: no adenopathy Progress - Progress Progress: 11/23/17 12:28 Vital Signs - 8 hr 11/23/17 10:59 Temperature 96.4 F L Pulse Rate [ 87 Left Radial] Respiratory 16 Rate Blood Pressure 147/77 [Left Arm] - Results/Orders Results/Orders: 11/23/17 11:00 Be Our Guest Tray (BOG) ONCE 11/23/17 11:15 EKG STAT Laboratory Results - last 24 hr 11/23/17 11/23/17 11/23/17 11:04 11:17 11:17 WBC 9.1 RBC 4.39 Hgb 12.1 Hct 37.5 MCV 85.4 MCH 27.5 MCHC 32.4 L RDW 20.8 H Plt Count 351 MPV 7.9 Absolute Neuts (auto) 7.20 H Absolute Lymphs (auto) 1.40 Absolute Monos (auto) 0.40 Absolute Eos (auto) 0.10 Absolute Basos (auto) 0.00 Neutrophils % 78.9 H Lymphocytes % 15.1 L Monocytes % 4.3 Eosinophils % 1.2 Basophils % 0.5 PT 13.9 H INR 1.200 PTT (SP) 36.8 H Sodium 137 Potassium 4.8 Chloride 105 Carbon Dioxide 23 Anion Gap 13.8 BUN 28 H Creatinine 0.74 BUN/Creatinine Ratio 37.8 H POC Glucose 127 H Random Glucose 209 H Serum Osmolality 285.4 Lactic Acid 1.8 Calcium 9.6 Magnesium 1.8 Total Bilirubin 0.7 Direct Bilirubin 0.1 Indirect Bilirubin 0.6 AST 39 ALT 28 Alkaline Phosphatase 94 Creatine Kinase 74 CK-MB (CK-2) 3.4 CK-MB (CK-2) % Not Reportable Troponin I 0.03 Serum Total Protein 7.2 Albumin 3.6 Urine Color Urine Appearance Urine pH Ur Specific Purmela Urine Protein Urine Glucose (UA) Urine Ketones Urine Blood Urine Nitrite Urine Bilirubin Urine Urobilinogen Ur Leukocyte Esterase Urine RBC Urine WBC Ur Epithelial Cells Urine Bacteria 11/23/17 11/23/17 12:57 13:28 WBC RBC Hgb Hct MCV MCH MCHC RDW Plt Count MPV Absolute Neuts (auto) Absolute Lymphs (auto) Absolute Monos (auto) Absolute Eos (auto) Absolute Basos (auto) Neutrophils % Lymphocytes % Monocytes % Eosinophils % Basophils % PT INR PTT (SP) Sodium Potassium Chloride Carbon Dioxide Anion Gap BUN Creatinine BUN/Creatinine Ratio POC Glucose 206 H D Random Glucose Serum Osmolality Lactic Acid Calcium Magnesium Total Bilirubin Direct Bilirubin Indirect Bilirubin AST ALT Alkaline Phosphatase Creatine Kinase CK-MB (CK-2) CK-MB (CK-2) % Troponin I Serum Total Protein Albumin Urine Color Yellow Urine Appearance Sl cloudy Urine pH 5.0 Ur Specific Pur[place]ela 1.025 Urine Protein Negative Urine Glucose (UA) 500 H Urine Ketones 15 H Urine Blood Trace-intact H Urine Nitrite Negative Urine Bilirubin Negative Urine Urobilinogen 0.2 Ur Leukocyte Esterase Negative Urine RBC 0-1 Urine WBC 0-1 Ur Epithelial Cells 1-3 Urine Bacteria Rare - EKG/XRAY/CT EKG: Sinus, RBBB - incomplete, nonspecific ST T wave Chg Comments: HR-80;1o av block Departure - Departure Clinical Impression: Hypoglycemia associated with type 2 diabetes mellitus, Altered awareness, transient Time of Disposition: 13:44 Disposition: Discharge to Home or Self Care Condition: Fair Departure Forms: ED Discharge - Pt. Copy, Patient Portal Self Enrollment Instructions: Hypoglycemia, DI for Diabetes Type 2, DI for Hypoglycemia Referrals: Carlos Alberto Martin MD [Primary Care Provider] - 1-2 Weeks Home Medications: Ambulatory Orders Atorvastatin Calcium [Lipitor] 40 mg PO DAILY 07/29/12 Glipizide 10 mg PO BID 07/29/12 Levothyroxine Sodium [Synthroid] 0.075 mg PO DAILY 07/29/12 Sulfasalazine [Sulfazine] 500 mg PO BID 07/29/12 Canagliflozin [Invokana] 300 mg PO DAILY 08/11/17 Clopidogrel Bisulfate [Plavix] 75 mg PO QD 08/11/17 Dabigatran Etexilate [Pradaxa] 75 mg PO BID 08/11/17 Methotrexate Sodium [Methotrexate] 10 mg PO WKLY 08/11/17 Pantoprazole Sodium 40 mg PO DAILY 08/11/17 Metoprolol Succinate [Metoprolol Succinate ER] 100 mg PO DAILY 08/12/17 Methylprednisolone [Medrol Dose Evan] 4 mg PO DAILY #1 pack 11/15/17 Tramadol-Acetaminophen [Ultracet] 1 - 2 tab PO Q6HR PRN #30 tab 11/15/17 Lisinopril [Prinivil] 10 mg PO DAILY 11/23/17 Additional Instructions: Need to take Glipizide 10 mg one tablet in am until follow up with primary Md.Return to er as needed;Also need to get appointment with supply chain tech
[2017-11-23 11:00] VITALS: TEMP 96.4
[2017-11-23 14:10] VITALS: BP 118/67; O2SAT 100
== END 2017-11-23 14:03 | disposition home or self-care (01) ==
LOC: ER 10:49
DX: E11.649 Type 2 diabetes mellitus with hypoglycemia without coma (principal); R41.82 Altered mental status, unspecified; K21.9 Gastro-esophageal reflux disease without esophagitis; E07.9 Disorder of thyroid, unspecified; Z79.4 Long term (current) use of insulin; Z79.02 Long term (current) use of antithrombotics/antiplatelets

== ENCOUNTER → 2017-11-24 | Outpatient (CLI) | payer OTHER ==
--- NOTE | 2017-11-24 15:47 | RAD ---
EXAM DESCRIPTION: Knee,Left Complete CLINICAL HISTORY: 77 years Female, PAIN IN LEFT KNEE TECHNIQUE: 4 views of the left knee were performed. COMPARISON: Radiographs of the left knee dated 11/15/2017. FINDINGS: The visualized bones appear diffusely osteopenic. No acute fracture or dislocation. Suprapatellar joint effusion is noted. Tricompartmental osteoarthritis is also identified. Chondrocalcinosis is noted. The soft tissues appear grossly unremarkable. IMPRESSION: Tricompartmental osteoarthritis with small suprapatellar joint effusion. Diffuse osteopenia. Electronically signed by: Shanna Kirkland MD 11/24/2017 3:46 PM CDT
--- NOTE | 2017-11-24 15:48 | RAD ---
EXAM DESCRIPTION: Pelvis CLINICAL HISTORY: 77 years Female, PAIN IN LEFT HIP COMPARISON: Radiograph of the pelvis dated 11/01/2017. TECHNIQUE: AP radiograph of the pelvis was performed. FINDINGS: The pelvic ring appears grossly intact on this single AP radiograph. No acute fracture or dislocation. Bilateral sacroiliac joints appear normal. Bilateral hip joints appear normal. The visualized lumbo-sacral spine demonstrates mild degenerative changes. The visualized bones appear osteopenic. IMPRESSION: Single AP radiograph of the pelvis demonstrates grossly intact pelvic ring. Electronically signed by: Shanna Kirkland MD 11/24/2017 3:47 PM CDT
== END ==
LOC: RAD 08:28
PROVIDERS: ATTEND Orthopaedic Surgery
DX: M25.562 Pain in left knee (principal); M25.552 Pain in left hip; M17.12 Unilateral primary osteoarthritis, left knee

== ENCOUNTER 2018-04-08 11:16 | Emergency (ER) | payer OTHER ==
[2018-04-08 11:30] VITALS: BP 131/80; TEMP 99.7
[2018-04-08] MEDS ORDERED: ONDANSETRON INJ 4 MG/2 ML VIAL IV ONE (11:42)
[2018-04-08] MEDS ORDERED: SODIUM CHLORIDE 0.9% 1000ML 1,000 ML IVS ONE (11:42)
--- NOTE | 2018-04-08 11:46 | ED.PDOC ---
History of Present Illness - General Chief Complaint: General Stated Complaint: Nausea Time Seen by Provider: 04/08/18 11:37 Source: patient Exam Limitations: no limitations - History of Present Illness Initial Comments: NAUSEA, DECREASED APPETITE, CHILLS BUT NO FEVER OR DYSURIA. DENIES DIARRHEA AND C/O ABDOMINAL PAINS. SHE HAS AF ON PLAVIX AND METOPROLOL. Timing/Duration: 1 week Improving Factors: nothing Worsening Factors: nothing Associated Symptoms: loss of appetite Allergies/Adverse Reactions: Allergies NO KNOWN ALLERGY Allergy (Verified 04/08/18 11:31) Home Medications: Ambulatory Orders Atorvastatin Calcium [Lipitor] 40 mg PO DAILY 07/29/12 Glipizide 10 mg PO BID 07/29/12 Levothyroxine Sodium [Synthroid] 0.075 mg PO DAILY 07/29/12 Sulfasalazine [Sulfazine] 500 mg PO BID 07/29/12 Canagliflozin [Invokana] 300 mg PO DAILY 08/11/17 Clopidogrel Bisulfate [Plavix] 75 mg PO QD 08/11/17 Dabigatran Etexilate [Pradaxa] 75 mg PO BID 08/11/17 Methotrexate Sodium [Methotrexate] 10 mg PO WKLY 08/11/17 Pantoprazole Sodium 40 mg PO DAILY 08/11/17 Metoprolol Succinate [Metoprolol Succinate ER] 100 mg PO DAILY 08/12/17 Methylprednisolone [Medrol Dose Evan] 4 mg PO DAILY #1 pack 11/15/17 Tramadol-Acetaminophen [Ultracet] 1 - 2 tab PO Q6HR PRN #30 tab 11/15/17 Lisinopril [Prinivil] 10 mg PO DAILY 11/23/17 Review of Systems - Review of Systems Constitutional: States: chills, malaise, weakness EENTM: States: no symptoms reported Respiratory: States: short of breath Cardiology: States: no symptoms reported Gastrointestinal/Abdominal: States: abdominal pain, nausea Genitourinary: States: no symptoms reported Musculoskeletal: States: no symptoms reported Skin: States: no symptoms reported Neurological: States: no symptoms reported Endocrine: States: no symptoms reported Hematologic/Lymphatic: States: no symptoms reported All other Systems: Reviewed and Negative Past Medical History (General) - Patient Medical History Hx Seizures: No Hx Stroke: No Hx Asthma: No Hx of COPD: No Hx Cardiac Disorders: Yes - Cardiac stents CAD Hx Congestive Heart Failure: No Hx Pacemaker: No Hx Hypertension: Yes Hx Thyroid Disease: Yes Hx Diabetes: Yes Hx Gastroesophageal Reflux: Yes Hx MRSA: No Hx Other PMH: Yes - 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 Hx Other - free text: HYPERTENSION AND ATRIAL FIBRILLATION Surgical History: Hysterectomy - Vaccination History Hx Influenza Vaccination: No - 2017 Hx Pneumococcal Vaccination: Yes - Social History Hx Tobacco Use: No Hx Alcohol Use: No Hx Substance Use: No Hx Physical Abuse: No Hx Emotional Abuse: No Family Medical History - Family History Mother Family History: Unknown Living Status: Unknown Hx Family Hypertension: Yes - parents Hx Family Diabetes: Yes Hx Family Cancer: Yes - mom-stomach Physical Exam - Physical Exam General Appearance: Alert, No apparent distress, Well Developed, Well Hydrated Eye Exam: right other - RED CONJUNCTIVA- Ears, Nose, Throat: normal ENT inspection, normal pharynx Neck: non-tender, full range of motion, supple, normal inspection Respiratory: chest non-tender, lungs clear, normal breath sounds, no respiratory distress, no accessory muscle use Cardiovascular/Chest: normal peripheral pulses, regular rate, rhythm, no edema, no gallop, no JVD, no murmur, tachycardia Peripheral Pulses: radial,right: 2+, radial,left: 2+ Gastrointestinal/Abdominal: normal bowel sounds, soft, no organomegaly, no pulsatile mass, abnormal bowel sounds Rectal Exam: deferred Back Exam: normal inspection Extremity: normal range of motion, non-tender, normal inspection, no pedal edema , no calf tenderness Neurologic: oriented x 3 Skin Exam: normal color, warm/dry Lymphatic: no adenopathy Progress - Progress Progress: 04/08/18 12:53 MULTIPLE ATTEMPTS TO GET A LINE AND BLOOD WERE UNSUCCESSFUL. THE PATIENT REFUSED ANY FURTHER TREATMENT AND DESIRES TO GO HOME. I HAVE TALKED TO HER AT LENGTH, BUT DESIRES TO LEAVE W/O ANY TREATMENT AND CERTAINLY WILL NOT LET ANYONE OBTAIN BLOOD. Departure - Departure Clinical Impression: Generalized abdominal discomfort Time of Disposition: 12:56 Disposition: Left Against Medical Advice Condition: Poor Departure Forms: ED Discharge - Pt. Copy, Patient Portal Self Enrollment Referrals: AMBROCIO DIALLO MD [Primary Care Provider] - 1-2 Weeks Home Medications: Ambulatory Orders Atorvastatin Calcium [Lipitor] 40 mg PO DAILY 07/29/12 Glipizide 10 mg PO BID 07/29/12 Levothyroxine Sodium [Synthroid] 0.075 mg PO DAILY 07/29/12 Sulfasalazine [Sulfazine] 500 mg PO BID 07/29/12 Canagliflozin [Invokana] 300 mg PO DAILY 08/11/17 Clopidogrel Bisulfate [Plavix] 75 mg PO QD 08/11/17 Dabigatran Etexilate [Pradaxa] 75 mg PO BID 08/11/17 Methotrexate Sodium [Methotrexate] 10 mg PO WKLY 08/11/17 Pantoprazole Sodium 40 mg PO DAILY 08/11/17 Metoprolol Succinate [Metoprolol Succinate ER] 100 mg PO DAILY 08/12/17 Methylprednisolone [Medrol Dose Evan] 4 mg PO DAILY #1 pack 11/15/17 Tramadol-Acetaminophen [Ultracet] 1 - 2 tab PO Q6HR PRN #30 tab 11/15/17 Lisinopril [Prinivil] 10 mg PO DAILY 11/23/17
--- NOTE | 2018-04-08 12:04 | RAD ---
EXAM DESCRIPTION: Chest,1 View CLINICAL HISTORY: 77 years Female, SOB COMPARISON: Previous study September 24, 2017 TECHNIQUE: AP portable chest. FINDINGS: Heart size is prominent with normal pulmonary vascularity. Mildly elevated left hemidiaphragm. No consolidating infiltrate. Two small nodules are seen in the mid to upper right lung projecting between the anterior aspects of the right third and fourth ribs measuring 7 mm and 8 mm. These could be external to the patient but lung nodules cannot be excluded. These are new compared to the previous study. Upright PA and lateral chest x-ray might be considered. If densities persist then chest CT could be performed. No pneumothorax or pleural effusion. Bones are unremarkable. IMPRESSION: Question new right upper lobe lung nodules. See above. Electronically signed by: Jefry Hernandez MD 04/08/2018 12:02 PM CDT
[2018-04-08 13:46] VITALS: O2SAT 94
== END 2018-04-08 13:19 | disposition left against medical advice (07) ==
LOC: ER 11:16
DX: R10.9 Unspecified abdominal pain (principal); R11.0 Nausea; M06.9 Rheumatoid arthritis, unspecified; I51.9 Heart disease, unspecified; K21.9 Gastro-esophageal reflux disease without esophagitis; I10 Essential (primary) hypertension; E07.9 Disorder of thyroid, unspecified; E11.9 Type 2 diabetes mellitus without complications; I48.91 Unspecified atrial fibrillation; Z95.5 Presence of coronary angioplasty implant and graft; Z79.899 Other long term (current) drug therapy

== ENCOUNTER → 2018-05-24 | Outpatient (CLI) | payer OTHER ==
--- NOTE | 2018-05-24 17:01 | MAM ---
EXAM DESCRIPTION: 3D Diagnostic, Right: Digital Mammography CLINICAL HISTORY: 77 yearsFemaleABNORMAL MAMMOGRAM . No personal or family history of breast cancer. No childbirth. Postmenopausal 34 years. HRT 5 or more years ago.. Lifetime risk of developing breast cancer (Tyrer-Cuzick model) percentage is 3.4. COMPARISON: Diagnostic bilateral digital breast tomosynthesis 10/20/2017. . TECHNIQUE: Right CC LM MLO projection full-field images, digital mammographic tomosynthesis technique. CAD not utilized. FINDINGS: The breast parenchymal density pattern is: Heterogeneously dense breast tissue, which may obscure small masses. No skin thickening or nipple retraction right breast axillary lymph nodes. Scattered solitary microcalcifications. Vascular calcifications. Focal asymmetry seen on the prior study appears stable. ULTRASOUND: Scanning of the lower outer quadrant of the right breast. Heterogeneous fibroglandular and fatty echotexture. Again noted is a hypoechoic object at the 8:00 position of the right breast 6 cm from the nipple. Margins are partially circumscribed and partially lobulated. Mostly parallel orientation with posterior shadowing features. Dimensions 5 x 4 cm with no vascularity. No distinct cyst, no large calcifications or parenchymal edema. No overlying skin changes or abnormal vascularity. Scanning of the left breast upper outer quadrant. Emphasis on tissue 6 cm from the nipple. Again noted is a hypoechoic circumscribed structure with minimal central echogenicity not vascular. No definite posterior acoustic features. 8 x 6 x 4 mm. No distinct cyst. No large calcifications or parenchymal edema. No overlying skin changes or abnormal vascularity. IMPRESSION: Suspicious lesion right breast. ASSESSMENT: BI-RADS CATEGORY 4: SUSPICIOUS. SUB-CATEGORY 4A - LOW SUSPICION FOR MALIGNANCY. Surgical consultation and tissue diagnosis should be considered. The FINDINGS and FOLLOW-UP plan were reviewed in person with the patient following the examination. Written communication explaining the IMPRESSION and FOLLOW-UP will be mailed to the patient and referring care provider. CRITICAL COMMUNICATION: The critical value was discussed directly by phone with Dr. uT Tolliver at approximately 1220 hours, on May 24, 2018. Electronically signed by: Dk Larkin MD 05/24/2018 4:59 PM [facility]
--- NOTE | 2018-05-24 17:03 | US ---
EXAM DESCRIPTION: Breast,Bilateral: Ultrasound CLINICAL HISTORY: 77 yearsFemale6 MONTH FOLLOW UP COMPARISON: Digital diagnostic tomosynthesis right breast on this visit. Bilateral targeted breast ultrasound 10/20/2017. TECHNIQUE: Transcutaneous scanning of the bilateral breast utilizing varghese-scale and Doppler modes. Scanning performed by the pleat taper ; observation by Dr. Larkin. FINDINGS: Scanning of the lower outer quadrant of the right breast. Heterogeneous fibroglandular and fatty echotexture. Again noted is a hypoechoic object at the 8:00 position of the right breast 6 cm from the nipple. Margins are partially circumscribed and partially lobulated. Mostly parallel orientation with posterior shadowing features. Dimensions 5 x 4 cm with no vascularity. No distinct cyst, no large calcifications or parenchymal edema. No overlying skin changes or abnormal vascularity. Scanning of the left breast upper outer quadrant. Emphasis on tissue 6 cm from the nipple. Again noted is a hypoechoic circumscribed structure with minimal central echogenicity not vascular. No definite posterior acoustic features. 8 x 6 x 4 mm. No distinct cyst. No large calcifications or parenchymal edema. No overlying skin changes or abnormal vascularity. IMPRESSION: 1. BI-RADS CATEGORY: 4 - SUSPICIOUS. SUB - CATEGORY 4A: LOW SUSPICION FOR MALIGNANCY. 2. Please refer to digital diagnostic tomosynthesis right breast mammography on this visit. The FINDINGS and various follow-up plans were reviewed in person with the patient after the examination. Written communication explaining the IMPRESSION and FOLLOW-UP will be mailed to the patient and referring care provider. Electronically signed by: Dk Larkin MD 05/24/2018 5:02 PM [employer] [employer]
== END ==
LOC: MAMMO 09:32
PROVIDERS: ATTEND Family Medicine
DX: R92.8 Other abnormal and inconclusive findings on diagnostic imaging of breast (principal)
CPT/HCPCS: 76641; 77065; G0279

== ENCOUNTER → 2018-06-07 | Outpatient (CLI) | payer OTHER ==
--- NOTE | 2018-06-07 09:15 | OP ---
DATE OF PROCEDURE: 06/07/18 PREOPERATIVE DIAGNOSIS: 1. Abnormal mammogram with solid mass at 8 o'clock. POSTOPERATIVE DIAGNOSIS: 1. Abnormal mammogram with solid mass at 8 o'clock. PROCEDURE: 1. Sonographically guided needle core biopsy, right breast mass. SURGEON: Hi Emmanuel MD. AIRPLANE REFUELER: None. ANESTHESIA: Local infiltration of 1% lidocaine. INDICATION: The patient is a 77-year-old female who on 6-month followup mammography and ultrasound was found to have a solid mass which appeared to shadow at the 8 o'clock position lateral to the right areola. She was brought to the Ultrasound Suite for biopsy today after the risks, benefits and alternatives to the procedure were discussed and accepted. FINDINGS: Multiple cores were taken with some solid tissue. The ultrasound did reveal the biopsy needle within the mass. PROCEDURE: After the patient was placed in the supine position, she was rolled up on her right side minimally. The right breast was examined and the lesion identified. When this was done, the breast medial to the ultrasound probe was prepped with Betadine and draped. Local infiltration of anesthesia was obtained with 1% lidocaine. A stab wound was then made with a 15 blade and the biopsy needle was introduced under ultrasound guidance into the mass with multiple passes. The specimens are sent for pathological evaluation. Hemostasis was obtained with pressure. A single 4-0 Prolene simple suture was placed. Sterile pressure dressing was applied. The patient tolerated the procedure well. Estimated blood loss was nil. #[id number] MTDD
--- NOTE | 2018-06-07 09:55 | US ---
EXAM DESCRIPTION: Biopsy/Needle Guidance: Ultrasound. CLINICAL HISTORY: 77 years Female RIGHT ABNORMAL MAMMOGRAM. COMPARISON: Diagnostic ultrasound of the right breast on 05/24/2018 TECHNIQUE: The procedure was performed by Dr. Emmanuel. Repeat ultrasound localized the lesion at the 8:00 position of the right breast centimeters from the nipple. Sterile preparation. Sterile ultrasound guidance during needle passes. FINDINGS: Multiple images show the echogenic needle passing through the hypoechoic mass. IMPRESSION: Successful ultrasound-guided needle core biopsy of right breast mass. Adequate core samples were obtained. Pathology examination at remote facility, results pending. Electronically signed by: Dk Larkin MD 06/07/2018 9:53 AM [employer]
== END ==
LOC: US 07:22
PROVIDERS: ATTEND Surgery
DX: R92.8 Other abnormal and inconclusive findings on diagnostic imaging of breast (principal)

== ENCOUNTER → 2018-06-15 | Outpatient (CLI) | payer OTHER | LOC: GMAE 10:51 | PROVIDERS: ATTEND Family Medicine | DX: E03.9 Hypothyroidism, unspecified (principal) ==

== ENCOUNTER → 2018-09-23 | Outpatient (CLI) | payer OTHER ==
--- NOTE | 2018-09-23 15:09 | US ---
EXAM DESCRIPTION: Renal: Ultrasound. CLINICAL HISTORY: 78 years Female ACUTE RENAL FAILURE COMPARISON: CT scan of the abdomen 06/15/2016. TECHNIQUE: Transcutaneous scanning: Two-dimensional and Doppler modes. FINDINGS: Right kidney measures 6.3 x 4.2 x 4.2 cm; mid-renal cortical thickness 9.9 mm. . Cortical echogenicity greater than the liver. Slight prominence of the pyramids. No hydronephrosis No echogenic stones. Smooth contour of the kidney with no perinephric fluid. Normal vascularity. Proximal ureter not visualized. Left kidney measures 6.9 x 4.1 x 3.9 cm; mid-renal cortical thickness 13 mm.. Cortical echogenicity greater than the liver. Slight prominence of the renal pyramids. No hydronephrosis. No echogenic stones. Mildly lobulated contour of the kidney with no perinephric fluid. Normal vascularity.. Proximal ureter not visualized. Urinary bladder not visualized. Abdominal aorta: not measured. IMPRESSION: Bilateral kidneys are small with thin cortex and prominent renal pyramids. Lobulated capsule of the left kidney. Tissues indicates a more chronic process. No hydronephrosis or perirenal fluid. Electronically signed by: Dk Larkin MD 09/23/2018 3:06 PM CDT
== END ==
LOC: US 07:45
PROVIDERS: ATTEND Internal Medicine Nephrology
DX: N17.9 Acute kidney failure, unspecified (principal)

== ENCOUNTER 2019-01-18 10:31 | Emergency (ER) | payer OTHER ==
--- NOTE | 2019-01-18 11:01 | ED.PDOC ---
History of Present Illness - General Stated Complaint: RAPID HEART RATE Time Seen by Provider: 01/18/19 10:49 Source: patient Exam Limitations: no limitations - History of Present Illness Initial Comments: THIS PATIENT COMES TO THE ED FROM THE DOCTORS OFFICE. SHE WAS THERE FOR JUST A FOLLOW UP VISIT AND ASYMPTOMATIC. WHILE THERE IT WAS NOTED THAT HER HEART RATE WAS IN THE 140'S. THE PCP CALLED THE ED AND SENT THE PATIENT HERE FOR EVALUATION. SHE DENIES ANY CHEST PAIN OR DIAPHORESIS. DENIES ANY VOMITING OR DIARRHEA. EVIDENTLY SHE WAS HERE IN THE MONTH OF MARCH/2018 FOR CHEST PAIN AND DIARRHEA. SHE WAS NOTED TO BE TACHYCARDIC THEN BUT THE PATIENT LEFT AGAINST MEDICAL ADVISE, MOSTLY BECAUSE WE STUCK HER TOO MANY TIMES AND UNABLE TO GET AN IV. Timing/Duration: other - UNABLE TO KNOW WHEN THE RAPID HEART RATE STARTED. Activities at Onset: none Prior Chest Pain/Cardiac Workup: no prior chest pain Improving Factors: nothing Worsening Factors: nothing Allergies/Adverse Reactions: Allergies NO KNOWN ALLERGY Allergy (Verified 04/08/18 11:31) Home Medications: Ambulatory Orders Atorvastatin Calcium [Lipitor] 40 mg PO DAILY 07/29/12 Glipizide 10 mg PO BID 07/29/12 Levothyroxine Sodium [Synthroid] 0.075 mg PO DAILY 07/29/12 Sulfasalazine [Sulfazine] 500 mg PO BID 07/29/12 Canagliflozin [Invokana] 300 mg PO DAILY 08/11/17 Clopidogrel Bisulfate [Plavix] 75 mg PO QD 08/11/17 Dabigatran Etexilate [Pradaxa] 75 mg PO BID 08/11/17 Methotrexate Sodium [Methotrexate] 10 mg PO WKLY 08/11/17 Pantoprazole Sodium 40 mg PO DAILY 08/11/17 Metoprolol Succinate [Metoprolol Succinate ER] 100 mg PO DAILY 08/12/17 Methylprednisolone [Medrol Dose Evan] 4 mg PO DAILY #1 pack 11/15/17 Tramadol-Acetaminophen [Ultracet] 1 - 2 tab PO Q6HR PRN #30 tab 11/15/17 Lisinopril [Prinivil] 10 mg PO DAILY 11/23/17 Review of Systems - Review of Systems Constitutional: States: other EENTM: States: no symptoms reported Respiratory: States: no symptoms reported Cardiology: States: palpitations Gastrointestinal/Abdominal: States: no symptoms reported Genitourinary: States: no symptoms reported Musculoskeletal: States: no symptoms reported Skin: States: no symptoms reported Neurological: States: no symptoms reported Endocrine: States: no symptoms reported Past Medical History (General) - Patient Medical History Hx Seizures: No Hx Stroke: No Hx Asthma: No Hx of COPD: No Hx Cardiac Disorders: Yes - Cardiac stents CAD Hx Congestive Heart Failure: No Hx Pacemaker: No Hx Hypertension: Yes Hx Thyroid Disease: Yes Hx Diabetes: Yes Hx Gastroesophageal Reflux: Yes Hx MRSA: No - Vaccination History Hx Influenza Vaccination: No - 2017 Hx Pneumococcal Vaccination: Yes - Social History Hx Tobacco Use: No Hx Alcohol Use: No Hx Substance Use: No Hx Physical Abuse: No Hx Emotional Abuse: No Family Medical History - Family History Mother Family History: Unknown Living Status: Unknown Hx Family Hypertension: Yes - parents Hx Family Diabetes: Yes Hx Family Cancer: Yes - mom-stomach Physical Exam - Physical Exam General Appearance: Alert, Well Developed, Well Groomed, Well Hydrated Eyes, Ears, Nose, Throat Exam: PERRL/EOMI, pharynx normal Neck: non-tender, full range of motion, supple Respiratory: chest non-tender, lungs clear, normal breath sounds, no respiratory distress, no accessory muscle use Cardiovascular/Chest: regular rate, rhythm, tachycardia Peripheral Pulses: radial,right: 2+, radial,left: 2+ Gastrointestinal/Abdominal: normal bowel sounds Rectal Exam: deferred Extremity: normal range of motion Neurologic: alert, oriented x 3 Skin Exam: warm/dry Progress - Progress Progress: 01/18/19 12:05 AFTER 18 MG OF ADENOCARD THE PATIENT HAS CONVERTED TO SINUS RHYTHM. THE CREATININE IS REPORTED 2. IN OCTOBER OF 2017 THE IT WAS 0.8. EKG: HR OF 145 QRS OF 108, QTC OF 506, AXES OF 51 DEGREES. IMPRESSION: SVT, COMPARISON 03/1218. AT THAT TIME THE TRACING ALSO REVEALED SVT AT 149. 01/18/19 12:15 REASSESSMENT: HR OF 90, WILL GIVE SECOND LITER OF NS AND PLAN TO DC. 01/18/19 13:[address] HOUSER-HE WILL FOLLOW UP - Results/Orders Results/Orders: 01/18/19 11:10 PARTIAL THROMBOPLASTIN TIME Stat PROTHROMBIN TIME Stat 01/18/19 11:30 EKG STAT Laboratory Results WBC 8.4 K/mm3 (4.8-10.8) 01/18/19 11:10 RBC 4.11 M/mm3 (4.20-5.40) L 01/18/19 11:10 Hgb 13.0 gm/dL (12.0-16.0) 01/18/19 11:10 Hct 38.6 % (36.0-47.0) 01/18/19 11:10 MCV 94.1 fl (81.0-99.0) 01/18/19 11:10 MCH 31.5 pg (27.0-31.0) H 01/18/19 11:10 MCHC 33.5 g/dL (33.0-37.0) 01/18/19 11:10 RDW 17.2 % (11.5-14.5) H 01/18/19 11:10 Plt Count 274 K/mm3 (130-400) 01/18/19 11:10 MPV 8.6 fl (7.40-10.4) 01/18/19 11:10 Absolute Neuts (auto) 5.50 K/uL (1.8-6.8) 01/18/19 11:10 Absolute Lymphs (auto) 1.60 K/uL (1.0-3.4) 01/18/19 11:10 Absolute Monos (auto) 1.10 K/uL (0.2-0.8) H 01/18/19 11:10 Absolute Eos (auto) 0.00 K/uL (0.0-0.4) 01/18/19 11:10 Absolute Basos (auto) 0.10 K/uL (0.0-0.1) 01/18/19 11:10 Neutrophils % 65.7 % (42.0-78.0) 01/18/19 11:10 Lymphocytes % 19.6 % (20.0-50.0) L 01/18/19 11:10 Monocytes % 12.8 % (2.0-9.0) H 01/18/19 11:10 Eosinophils % 0.5 % (1.0-5.0) L 01/18/19 11:10 Basophils % 1.4 % (0.0-2.0) 01/18/19 11:10 Sodium 138 mmol/L (135-145) 01/18/19 11:10 Potassium 4.7 mmol/L (3.6-5.0) 01/18/19 11:10 Chloride 105 mmol/L (101-111) 01/18/19 11:10 Carbon Dioxide 19 mmol/L (21-31) L 01/18/19 11:10 Anion Gap 18.7 (12-18) H 01/18/19 11:10 BUN 32 mg/dL (7-18) H 01/18/19 11:10 Creatinine 2.00 mg/dL (0.6-1.3) H 01/18/19 11:10 BUN/Creatinine Ratio 16.0 (10-20) 01/18/19 11:10 Random Glucose 181 mg/dL (70-105) H 01/18/19 11:10 Serum Osmolality 287.2 mOsm/L (275-295) 01/18/19 11:10 Calcium 9.9 mg/dL (8.4-10.2) 01/18/19 11:10 Total Bilirubin 0.5 mg/dL (0.2-1.0) 01/18/19 11:10 AST 31 IU/L (10-42) 01/18/19 11:10 ALT 18 IU/L (10-60) 01/18/19 11:10 Alkaline Phosphatase 76 IU/L (42-121) 01/18/19 11:10 Troponin I < 0.02 ng/mL (0.01-0.05) 01/18/19 11:10 Serum Total Protein 7.1 gm/dL (6.4-8.2) 01/18/19 11:10 Albumin 3.9 g/dl (3.2-5.5) 01/18/19 11:10 Globulin 3.2 gm/dL (2.3-3.5) 01/18/19 11:10 Albumin/Globulin Ratio 1.2 (1.1-1.9) 01/18/19 11:10 TSH 0.30 uIU/mL (0.34-5.60) L 01/18/19 11:10 Procedures - Additional Procedures Additional Procedures: cardioversion/defib - MEDICAL CARDIOVERSION WITH ADENOCARD: INITIAL DOSE OF 6 MG IVP WAS UNSUCCESFUL, SECOND DOSE OF 12 MG IVP WAS SUCCESFUL. Departure - Departure Clinical Impression: Paroxysmal SVT (supraventricular tachycardia), Dehydration Time of Disposition: :17 Disposition: Discharge to Home or Self Care Condition: Good Instructions: Supraventricular Tachycardia (SVT) Referrals: AMBROCIO DIALLO MD [Primary Care Provider] - 1-2 Weeks Home Medications: Ambulatory Orders Atorvastatin Calcium [Lipitor] 40 mg PO DAILY 07/29/12 Glipizide 10 mg PO BID 07/29/12 Levothyroxine Sodium [Synthroid] 0.075 mg PO DAILY 07/29/12 Sulfasalazine [Sulfazine] 500 mg PO BID 07/29/12 Canagliflozin [Invokana] 300 mg PO DAILY 08/11/17 Clopidogrel Bisulfate [Plavix] 75 mg PO QD 08/11/17 Dabigatran Etexilate [Pradaxa] 75 mg PO BID 08/11/17 Methotrexate Sodium [Methotrexate] 10 mg PO WKLY 08/11/17 Pantoprazole Sodium 40 mg PO DAILY 08/11/17 Metoprolol Succinate [Metoprolol Succinate ER] 100 mg PO DAILY 08/12/17 Methylprednisolone [Medrol Dose Evan] 4 mg PO DAILY #1 pack 11/15/17 Tramadol-Acetaminophen [Ultracet] 1 - 2 tab PO Q6HR PRN #30 tab 11/15/17 Lisinopril [Prinivil] 10 mg PO DAILY 11/23/17 Critical Care Note - Critical Care Note Total Time (mins): 35 Comments: CRITICAL EVENT: PALPITATIONS CRITICAL FINDINGS: SVT, VOLUME DEPLETION CRITICAL ACTIONS: IV ADENOSINE: 18 MG CRITICAL TIME: 35 MINUTES
[2019-01-18] MEDS ORDERED: ADENOSINE INJ 6 MG/2 ML SYG IV ONE ×2 (11:07→11:30)
[2019-01-18] MEDS ORDERED: SODIUM CHLORIDE 0.9% 1000ML 1,000 ML ONE ×2 (11:10→12:03)
[2019-01-18 11:22] VITALS: TEMP 98.7
--- NOTE | 2019-01-18 11:43 | RAD ---
EXAM DESCRIPTION: Chest,1 View CLINICAL HISTORY: 78 years Female, SOB COMPARISON: Previous study April 08, 2018 TECHNIQUE: AP portable chest. FINDINGS: Heart size is large with normal pulmonary vascularity. No consolidating infiltrate. No pulmonary mass or worrisome nodule. No pneumothorax or pleural effusion. Bones are unremarkable. IMPRESSION: Large heart without congestive failure. Electronically signed by: Jefry Hernandez MD 01/18/2019 11:40 AM CDT
[2019-01-18 13:32] VITALS: BP 127/85
[2019-01-18 13:33] VITALS: O2SAT 99
== END 2019-01-18 13:34 | disposition home or self-care (01) ==
LOC: ER 10:31
DX: I47.1 Supraventricular tachycardia (principal); E86.0 Dehydration; I25.10 Atherosclerotic heart disease of native coronary artery without angina pectoris; I10 Essential (primary) hypertension; E07.9 Disorder of thyroid, unspecified; E11.9 Type 2 diabetes mellitus without complications; K21.9 Gastro-esophageal reflux disease without esophagitis; Z95.5 Presence of coronary angioplasty implant and graft; Z79.899 Other long term (current) drug therapy
CPT/HCPCS: 36415; 71045; 80053; 84443; 84484; 85025; 93005; J0153; J7030

== ENCOUNTER → 2019-02-02 | Outpatient (CLI) | payer OTHER | LOC: LAB.O 13:16 | PROVIDERS: ATTEND Family Medicine | DX: M05.79 Rheumatoid arthritis with rheumatoid factor of multiple sites without organ or systems involvement (principal) ==

== ENCOUNTER → 2019-03-27 | Outpatient (CLI) | payer OTHER | LOC: GMAE 12:40 | PROVIDERS: ATTEND Family Medicine | DX: R00.0 Tachycardia, unspecified (principal) ==

== ENCOUNTER → 2019-07-31 | Outpatient (CLI) | payer OTHER | LOC: GMAE 14:18 | PROVIDERS: ATTEND Family Medicine | DX: M89.9 Disorder of bone, unspecified (principal); M05.79 Rheumatoid arthritis with rheumatoid factor of multiple sites without organ or systems involvement ==

== ENCOUNTER → 2020-01-03 | Outpatient (CLI) | payer OTHER | LOC: GMAE 10:56 | PROVIDERS: ATTEND Family Medicine | DX: E83.51 Hypocalcemia (principal); M05.79 Rheumatoid arthritis with rheumatoid factor of multiple sites without organ or systems involvement ==

== ENCOUNTER → 2020-04-02 | Outpatient (CLI) | payer OTHER | LOC: US 13:36 | PROVIDERS: ATTEND Family Medicine | DX: I51.7 Cardiomegaly (principal); I51.9 Heart disease, unspecified; I34.0 Nonrheumatic mitral (valve) insufficiency; R55 Syncope and collapse ==

== ENCOUNTER → 2020-04-04 | Outpatient (CLI) | payer OTHER ==
--- NOTE | 2020-04-05 15:26 | US ---
EXAM DESCRIPTION: Carotid Duplex: ULTRASOUND. CLINICAL HISTORY: 79 years Female SYNCOPE AND COLLAPSE COMPARISON: None. TECHNIQUE: Transcutaneous scanning utilizing varghese-scale and Doppler modes to evaluate the bilateral carotid systems and vertebral arteries. Percentage of diameter of stenosis or no stenosis recorded will be based upon NASCET criteria. FINDINGS: Peak systolic/end diastolic velocities (CM-Sec) CCA Right 58/15 Left 48/10. ICA Right proximal 52/18, distal 77/24. Left proximal 48/13, mid 66/19. Vertebral Right 43/11 Left 49/14. ECA (PS Only) Right 43/4 left 45/0. ICA/CCA peak systolic velocity ratio: Right 1.3 Left 1.0 ICA/CCA end diastolic velocity ratio: Right 1.6 Left 1.0. Vertebral arteries: antegrade flow. Comments Comments: Minimal atherosclerotic calcification bilaterally. Spectral broadening mid and distal bilateral ICAs. Area and diameter stenosis in the mid right CCA bulb is less than 30%. IMPRESSION: 1. Doppler evaluation of the bilateral carotid systems and vertebral arteries shows no hemodynamically significant stenoses (less than 70%). 2. No significant amount of plaque in the carotid arteries bilaterally. Bilateral vertebral arteries showed antegrade-cephalad flow. Electronically signed by: Dk Larkin MD 04/05/2020 3:24 PM CDT
== END ==
LOC: US 12:40
PROVIDERS: ATTEND Family Medicine
DX: R55 Syncope and collapse (principal)